=== PATIENT | female | born 1940 | race Caucasian/White ===

== ENCOUNTER 2020-07-20 13:17 | Inpatient (IN) ==
[2020-07-20 13:22] VITALS: BMI 25.0
--- NOTE | 2020-07-20 14:19 | DR.GENAD ---
HPI <Haroon Avalos - Last Filed: 07/22/20 08:22> Time Seen Time Seen by Provider: 07/20/20 14:01 PCP Primary Care Physician: EFRAIN ALMARAZ Complaint/Symptoms Chief Complaint:: PT. TESTED POSITIVE FOR INFLUENZA AND COVID ON 07/15/20. PT. STILL C/O COUGH, DECREASED APPETITE, FEVER AND BODY ACHES. PT. IS CURRENTLY TAKING TESSALON PEARLES WHICH IS NOT WORKING FOR THE COUGH. COVID-19 Coronavirus risk:travel/contact w/high risk person: Yes Has patient experienced Coronavirus symptoms: Yes Coronavirus symptoms experienced: Fever and Coughing Source History Provided: Patient and Family Member Mode of Arrival Mode of Arrival: Ambulatory Timing Onset of Chief Complaint: 07/15/20 PMH <Haroon Avalos - Last Filed: 07/22/20 08:22> PMH Past Medical History: No Past Surgical History: Yes Surgical History: Family History History of Family Medical Conditions: Yes Family Medical History: Hypertension Social History Does patient currently use any type of tobacco product: No Have you used tobacco products in the last 12 months: No Type of Tobacco Use: None Does any household member use tobacco: No Alcohol Use: None Do you use any recreational Drugs:: No Lives With: Alone Lives Where: Home Travel Risk Coronavirus risk:travel/contact w/high risk person: Yes Has patient experienced Coronavirus symptoms: Yes Coronavirus symptoms experienced: Fever and Coughing Infectious screening In the last 2 months have you had wt loss of >10#?: NO Have you had fever, night sweats or hemotysis?: No Have you traveled outside the country in the last 6 months?: No Isolation: Droplet ROS <Haroon Avalos - Last Filed: 07/22/20 08:22> Review of Systems Constitutional: Chills, Fever, Malaise, Weakness and Fatigue Eyes: No Symptoms Reported ENTM: No Symptoms Reported Respiratoy: Non-Productive Cough and Short of Breath Cardiovascular: No Symptoms Reported Gastrointestinal/Abdominal: No Symptoms Reported Genitourinary: No Symptoms Reported Neurological: No Symptoms Reported Musculoskeletal: Muscle Pain Integumentary: No Symptoms Reported Hematologic/Lymphatic: No Symptoms Reported Endocrine: No Symptoms Reported Psychiatric: No Symptoms Reported All Other Systems: Reviewed and Negative PE <Haroon Avalos - Last Filed: 07/22/20 08:22> Vital Signs Vitals: Temperature 99.6 F Pulse Rate 80 Respiratory Rate 17 Blood Pressure 142/62 O2 Sat by Pulse Oximetry 94 General Limitations: No Limitations General Appearance: Alert and Other (not lethargic but weak ) Head Head Exam: Normal Inspection, Atraumatic and Normocephalic Eyes Eye exam: Normal Appearance, PERRL and EOMI; negative Scleral Icterus and Conjunctival Injection ENT ENT Exam: Normal Exam, Normal Oropharynx, Normal External Ear Exam and Mucous Membranes Moist External Ear Exam: Normal External Inspection Neck Neck Exam: Normal Inspection, Full ROM and Trachea Midline; negative Lymphaden opathy Chest Chest Inspection: Normal Inspection and Symmetric Chest Wall Rise Respiratory Respiratory Exam: Normal Lung Sounds Bilat; negative Accessory Muscle Use and Chest Wall Tenderness Respiratory Exam: Bilateral: Clear to Auscultation Cardiovascular Cardiovascular Exam: Regular Rate, Normal Rhythm and Normal Heart Sounds Abdominal Exam Abdominal Exam: Normal Inspection, Normal Bowel Sounds and Soft; negative Distention, Tenderness and Guarding Extremities Extremities Exam: Normal Inspection and Full ROM; negative Tenderness, Edema and Joint Swelling Back Back Exam: Normal Inspection and Full ROM; negative Tenderness Neurologic Neurological Exam: Alert, Oriented X3 and Normal Gait Psychiatric Psychiatric Exam: Normal Affect, Normal Mood and Depressed <Aminah Shah - Last Filed: 07/21/20 01:28> Vital Signs Vitals: Temperature 99.6 F Pulse Rate 80 Respiratory Rate 17 Blood Pressure 142/62 O2 Sat by Pulse Oximetry 94 COURSE <Haroon Avalos - Last Filed: 07/22/20 08:22> Treatment Treatment: 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 at 200h <Aminah Shah - Last Filed: 07/21/20 01:28> Treatment Treatment: Dr Pina accepts pt ROR <Haroon Avalos - Last Filed: 07/22/20 08:22> Labs Reviewed Result Diagrams: 07/22/20 05:05 07/22/20 05:05 Laboratory: WBC 3.8 X10^3/uL (3.6-10.0) 07/20/20 14:25 RBC 4.68 X10^6/uL (3.5-5.4) 07/20/20 14:25 Hgb 14.2 g/dL (12.0-16.0) 07/20/20 14:25 Hct 42.0 % (36.0-47.0) 07/20/20 14:25 MCV 89.9 fL (80.0-100.0) 07/20/20 14:25 MCH 30.3 pg (27.0-34.0) 07/20/20 14:25 MCHC 33.8 g/dL (33.0-35.0) 07/20/20 14:25 RDW 12.1 % (11.6-16.5) 07/20/20 14:25 Plt Count 173 X10^3/uL (150.0-450.0) 07/20/20 14:25 MPV 8.6 fL (7.4-11.0) 07/20/20 14:25 Neut % (Auto) 63.0 % (42.0-75.0) 07/20/20 14:25 Lymph % (Auto) 25.4 % (21.0-51.0) 07/20/20 14:25 [place] % (Auto) 11.0 % (0.0-13.0) 07/20/20 14:25 Eos % (Auto) 0.0 % (0.9-2.9) L 07/20/20 14:25 Baso % (Auto) 0.6 % (0.2-1.0) 07/20/20 14:25 Neut # (Auto) 2.4 x10^3/uL (2.2-4.8) 07/20/20 14:25 Lymph # (Auto) 1.0 X10^3/uL (1.3-2.9) L 07/20/20 14:25 [place] # (Auto) 0.4 x10^3/uL (0.3-0.8) 07/20/20 14:25 Eos # (Auto) 0.0 x10^3/uL (0.0-0.2) 07/20/20 14:25 Baso # (Auto) 0.0 X10^3/uL (0.0-0.1) 07/20/20 14:25 Absolute Nucleated RBC 0.2 /100WBC 07/20/20 14:25 PT 13.2 SECONDS (11.8-14.3) 07/20/20 14:25 INR Target Range - 07/20/20 14:25 INR 1.03 (0.8-1.3) 07/20/20 14:25 APTT 31.0 SECONDS (22.9-36.5) 07/20/20 14:25 PTT Comment - 07/20/20 14:25 D-Dimer 2.07 ug/ml (0.0-0.57) H* 07/20/20 14:25 Sample Site Rr 07/20/20 14:49 ABG pH 7.490 (7.35-7.45) H 07/20/20 14:49 ABG pCO2 35.0 mmHg (35.0-45.0) 07/20/20 14:49 ABG pO2 70.0 mmHg (80.0-100.0) L 07/20/20 14:49 ABG HCO3 26.7 mmol/L (22-26) H 07/20/20 14:49 ABG O2 Saturation 95.0 % (90-100) 07/20/20 14:49 ABG Base Excess 3.5 mmol/L (-2.0-2.0) H 07/20/20 14:49 Herbert Test Pos 07/20/20 14:49 A-a Gradient 36.0 mmHg 07/20/20 14:49 FiO2 21.0 07/20/20 14:49 Blood Gas Comments Humble well cb 07/20/20 14:49 Sodium 139 mmol/L (136-145) 07/20/20 14:25 Corrected Sodium TNP 07/20/20 14:25 Potassium 4.2 mmol/L (3.5-5.1) 07/20/20 14:25 Chloride 102 mmol/L (98-107) 07/20/20 14:25 Carbon Dioxide 29.9 mmol/L (21-32) 07/20/20 14:25 BUN 13 mg/dL (7-18) 07/20/20 14:25 Creatinine 1.02 mg/dL (0.55-1.02) 07/20/20 14:25 Est GFR (MDRD) Af Amer > 60 (>60) 07/20/20 14:25 Est GFR (MDRD) Non-Af 56 (>60) L 07/20/20 14:25 Glucose 103 mg/dL (65-99) H 07/20/20 14:25 Calcium 9.1 mg/dL (8.5-10.1) 07/20/20 14:25 Corrected Calcium 9.8 mg/dL (8.5-10.1) 07/20/20 14:25 Magnesium 2.0 mg/dL (1.7-2.9) 07/20/20 14:25 Ferritin 411 ng/mL (8-252) H 07/20/20 14:25 Total Bilirubin 0.30 mg/dL (0.2-1.0) 07/20/20 14:25 AST 32 Units/L (15-37) 07/20/20 14:25 ALT 29 Units/L (12-78) 07/20/20 14:25 Alkaline Phosphatase 72 Units/L (46-116) 07/20/20 14:25 Creatine Kinase 137 Units/L (26-192) 07/20/20 14:25 CK-MB (CK-2) 1.3 ng/mL (0-4.0) 07/20/20 14:25 CK/CKMB % Calc 1.0 % (<4) 07/20/20 14:25 Troponin I < 0.02 ng/mL (0-1.5) 07/20/20 14:25 C-Reactive Protein 31.10 mg/L (0-3.0) H 07/20/20 14:25 B-Natriuretic Peptide 22.2 pg/mL (0-79) 07/20/20 14:25 Total Protein 7.4 g/dL (6.4-8.2) 07/20/20 14:25 Albumin 3.1 g/dL (3.4-5.0) L 07/20/20 14:25 Globulin 4.3 g/dL (2.5-4.5) 07/20/20 14:25 Albumin/Globulin Ratio 0.7 Ratio (1.1-2.1) L 07/20/20 14:25 <Aminah Shah - Last Filed: 07/21/20 01:28> Labs Reviewed Laboratory Results Reviewed?: Yes Laboratory: WBC 3.8 X10^3/uL (3.6-10.0) 07/20/20 14:25 RBC 4.68 X10^6/uL (3.5-5.4) 07/20/20 14:25 Hgb 14.2 g/dL (12.0-16.0) 07/20/20 14:25 Hct 42.0 % (36.0-47.0) 07/20/20 14:25 MCV 89.9 fL (80.0-100.0) 07/20/20 14:25 MCH 30.3 pg (27.0-34.0) 07/20/20 14:25 MCHC 33.8 g/dL (33.0-35.0) 07/20/20 14:25 RDW 12.1 % (11.6-16.5) 07/20/20 14:25 Plt Count 173 X10^3/uL (150.0-450.0) 07/20/20 14:25 MPV 8.6 fL (7.4-11.0) 07/20/20 14:25 Neut % (Auto) 63.0 % (42.0-75.0) 07/20/20 14:25 Lymph % (Auto) 25.4 % (21.0-51.0) 07/20/20 14:25 [place] % (Auto) 11.0 % (0.0-13.0) 07/20/20 14:25 Eos % (Auto) 0.0 % (0.9-2.9) L 07/20/20 14:25 Baso % (Auto) 0.6 % (0.2-1.0) 07/20/20 14:25 Neut # (Auto) 2.4 x10^3/uL (2.2-4.8) 07/20/20 14:25 Lymph # (Auto) 1.0 X10^3/uL (1.3-2.9) L 07/20/20 14:25 [place] # (Auto) 0.4 x10^3/uL (0.3-0.8) 07/20/20 14:25 Eos # (Auto) 0.0 x10^3/uL (0.0-0.2) 07/20/20 14:25 Baso # (Auto) 0.0 X10^3/uL (0.0-0.1) 07/20/20 14:25 Absolute Nucleated RBC 0.2 /100WBC 07/20/20 14:25 PT 13.2 SECONDS (11.8-14.3) 07/20/20 14:25 INR Target Range - 07/20/20 14:25 INR 1.03 (0.8-1.3) 07/20/20 14:25 APTT 31.0 SECONDS (22.9-36.5) 07/20/20 14:25 PTT Comment - 07/20/20 14:25 D-Dimer 2.07 ug/ml (0.0-0.57) H* 07/20/20 14:25 Sample Site Rr 07/20/20 14:49 ABG pH 7.490 (7.35-7.45) H 07/20/20 14:49 ABG pCO2 35.0 mmHg (35.0-45.0) 07/20/20 14:49 ABG pO2 70.0 mmHg (80.0-100.0) L 07/20/20 14:49 ABG HCO3 26.7 mmol/L (22-26) H 07/20/20 14:49 ABG O2 Saturation 95.0 % (90-100) 07/20/20 14:49 ABG Base Excess 3.5 mmol/L (-2.0-2.0) H 07/20/20 14:49 Herbert Test Pos 07/20/20 14:49 A-a Gradient 36.0 mmHg 07/20/20 14:49 FiO2 21.0 07/20/20 14:49 Blood Gas Comments Humble well cb 07/20/20 14:49 Sodium 139 mmol/L (136-145) 07/20/20 14:25 Corrected Sodium TNP 07/20/20 14:25 Potassium 4.2 mmol/L (3.5-5.1) 07/20/20 14:25 Chloride 102 mmol/L (98-107) 07/20/20 14:25 Carbon Dioxide 29.9 mmol/L (21-32) 07/20/20 14:25 BUN 13 mg/dL (7-18) 07/20/20 14:25 Creatinine 1.02 mg/dL (0.55-1.02) 07/20/20 14:25 Est GFR (MDRD) Af Amer > 60 (>60) 07/20/20 14:25 Est GFR (MDRD) Non-Af 56 (>60) L 07/20/20 14:25 Glucose 103 mg/dL (65-99) H 07/20/20 14:25 Calcium 9.1 mg/dL (8.5-10.1) 07/20/20 14:25 Corrected Calcium 9.8 mg/dL (8.5-10.1) 07/20/20 14:25 Magnesium 2.0 mg/dL (1.7-2.9) 07/20/20 14:25 Ferritin 411 ng/mL (8-252) H 07/20/20 14:25 Total Bilirubin 0.30 mg/dL (0.2-1.0) 07/20/20 14:25 AST 32 Units/L (15-37) 07/20/20 14:25 ALT 29 Units/L (12-78) 07/20/20 14:25 Alkaline Phosphatase 72 Units/L (46-116) 07/20/20 14:25 Creatine Kinase 137 Units/L (26-192) 07/20/20 14:25 CK-MB (CK-2) 1.3 ng/mL (0-4.0) 07/20/20 14:25 CK/CKMB % Calc 1.0 % (<4) 07/20/20 14:25 Troponin I < 0.02 ng/mL (0-1.5) 07/20/20 14:25 C-Reactive Protein 31.10 mg/L (0-3.0) H 07/20/20 14:25 B-Natriuretic Peptide 22.2 pg/mL (0-79) 07/20/20 14:25 Total Protein 7.4 g/dL (6.4-8.2) 07/20/20 14:25 Albumin 3.1 g/dL (3.4-5.0) L 07/20/20 14:25 Globulin 4.3 g/dL (2.5-4.5) 07/20/20 14:25 Albumin/Globulin Ratio 0.7 Ratio (1.1-2.1) L 07/20/20 14:25 XRAY XRAY Interpreted by: Radiologist X-ray Results: CT Chest: 1. No pulmonary emboli 2. Bronchopneumonia suspicious for COVID-19 Opioid <Haroon Avalos - Last Filed: 07/22/20 08:22> Opioid Risk Tool Age (Ludwig box if 16-45): No History of Preadolescent Sexual Abuse: No Total: 0 Total Score Risk Category: Low Risk Copyright: Mayank HAYNES predicting aberrant behaviors <Aminah Shah - Last Filed: 07/21/20 01:28> Opioid Risk Tool Total: 0 Total Score Risk Category: Low Risk <Haroon Avalos - Last Filed: 07/22/20 08:22> Diagnosis Discharge Problem: Bronchopneumonia, COVID-19, Influenza, Hypoxia
--- NOTE | 2020-07-20 14:30 | RAD ---
HISTORYCough, COVID-19STUDYChest AP portableCOMPARISONNoneFINDINGSThe heart is within normal limits in size. The wendy are normal. The lungs are free of acute infiltrates. No pleural effusions are identified. Bony thorax is unremarkable.IMPRESSIONNo significant abnormality identifiedElectronically signed by: JEROD GIORDANO (Jul 20, 2020 14:28:47)
[2020-07-20 14:37] LABS: BASOPHILS % (AUTO) 0.6 % (0.2-1.0); HEMOGLOBIN 14.2 g/dL (12.0-16.0); LYMPHOCYTES % (AUTO) 25.4 % (21.0-51.0); MEAN CORPUSCULAR HEMOGLOBIN 30.3 pg (27.0-34.0); MEAN CORPUSCULAR HGB CONC 33.8 g/dL (33.0-35.0); MEAN CORPUSCULAR VOLUME 89.9 fL (80.0-100.0); MEAN PLATELET VOLUME 8.6 fL (7.4-11.0); MONOCYTES # (AUTO) 0.4 x10^3/uL (0.3-0.8); NEUTROPHILS # (AUTO) 2.4 x10^3/uL (2.2-4.8); PLATELET COUNT 173 X10^3/uL (150.0-450.0); RED BLOOD COUNT 4.68 X10^6/uL (3.5-5.4); RED CELL DISTRIBUTION WIDTH 12.1 % (11.6-16.5); WHITE BLOOD COUNT 3.8 X10^3/uL (3.6-10.0)
[2020-07-20 14:53] LABS: BLOOD UREA NITROGEN 13 mg/dL (7-18); CALCIUM 9.1 mg/dL (8.5-10.1); CARBON DIOXIDE 29.9 mmol/L (21-32); CHLORIDE 102 mmol/L (98-107); CREATININE 1.02 mg/dL (0.55-1.02); SODIUM 139 mmol/L (136-145); TROPONIN I < 0.02 ng/mL (0-1.5); eGFR NON BLACK RACES 56 (>60)
[2020-07-20 14:54] LABS: ABG ALLEN TEST POS; ABG BASE EXCESS 3.5 mmol/L (-2.0-2.0); ABG HCO3 26.7 mmol/L (22-26)
[2020-07-20 14:57] LABS: ALANINE AMINOTRANSFERASE 29 Units/L (12-78); ALBUMIN 3.1 g/dL (3.4-5.0); ALKALINE PHOSPHATASE 72 Units/L (46-116); ASPARTATE AMINO TRANSFERASE 32 Units/L (15-37); COR CA(FOR HYPOALB) 9.8 mg/dL (8.5-10.1); CREATINE KINASE 137 Units/L (26-192); CREATINE KINASE MB 1.3 ng/mL (0-4.0); TOTAL PROTEIN 7.4 g/dL (6.4-8.2)
--- NOTE | 2020-07-20 16:01 | CT ---
HISTORYSOB positive influenza test and COVID-19 test on 07/15/2020. Coughing. Decreased appetite with fever and body aches.STUDYCTA CHESTCOMPARISONChest radiograph from earlier todayTECHNIQUEMultiple CT axial images of the chest were obtained with IV contrast. Coronal and sagittal images were reconstructed. 3D reconstructions using axial MIPS imaging was performed and reviewed. Dose reduction techniques included Automated Exposure Control (AEC) and adjustment of mA and kV.Stenoses are measured using NASCET criteria.FINDINGSPulmonary arteries are identified to subsegmental branches. There are no pulmonary emboli.Patchy bilateral areas of ground-glass opacity are present compatible with bronchopneumonia. This appearance is suspicious for COVID-19. No pleural effusion or lung cavitation.The thyroid has a normal size and configuration. No axillary mass or significant axillary lymphadenopathy is identified. The heart is normal in size. Atherosclerotic calcifications are present in the coronary arteries. No mediastinal mass or significant lymphadenopathy.Limited views of the upper abdomen show no significant abnormality. No significant bone abnormality. Small hiatal hernia.IMPRESSION1. No pulmonary emboli2. Bronchopneumonia suspicious for COVID-19Electronically signed by: Alessio Shah (Jul 20, 2020 15:59:56)
[2020-07-20] MEDS ORDERED: SOLU-Medrol 125 MG VIAL IVP ONE (16:53)
[2020-07-20] MEDS ORDERED: ROCEPHIN 1 GRAM IV PREMIX 1 G/50 ML IV.SOLN. IV ONE (16:53)
[2020-07-20] MEDS ORDERED: VENTOLIN or PROAIR HFA IN ONE (16:53)
[2020-07-20] MEDS ORDERED: ZITHROMAX INJ 500 MG VIAL 500 MG in NS 250 ML IV 250 ML IV SCH (16:54)
[2020-07-20] MEDS ORDERED: DECADRON INJ PRESERVATIVE-FREE IVP ONE (17:25)
[2020-07-20] MEDS ORDERED: NS 50 ML IV + SPIKE MINIBAG* 50 ML IV ONE (17:35)
[2020-07-20] MEDS ORDERED: DECADRON INJ ONE (17:35)
[2020-07-20] MEDS ORDERED: NS 250 ML IV 250 ML IV ONE (17:35)
[2020-07-20] MEDS ORDERED: ZITHROMAX INJ 500 MG VIAL IV ONE (17:35)
[2020-07-20] MEDS ORDERED: NS 1000 ML 1,000 ML ONE (17:35)
[2020-07-20] MEDS ORDERED: ROCEPHIN VIAL 1 GRAM ONE (17:36)
[2020-07-20] MEDS ORDERED: NS 1000 ML 1,000 ML IV SCH (18:00)
[2020-07-20] MEDS ORDERED: PLAQUENIL PO SCH (21:00)
[2020-07-20] MEDS ORDERED: REMDESIVIR 200 MG in NS 250 ML IV 250 ML IV SCH (23:00)
[2020-07-20] MEDS: ASCORBIC ACID INJ MULTI-DOSE VIAL 1,500 MG in NS 100 ML IV 100 ML IV SCH (23:31)
[2020-07-20] MEDS: LOVENOX INJ 30 MG SYR SC SCH (23:31)
[2020-07-20] MEDS: ZINC SULFATE PO SCH (23:32)
[2020-07-20] MEDS: NS 1000 ML 1,000 ML IV SCH (23:32)
[2020-07-21] MEDS: ASCORBIC ACID INJ MULTI-DOSE VIAL 1,500 MG in NS 100 ML IV 100 ML IV SCH ×2 (04:00→08:18)
[2020-07-21 05:41] LABS: BASOPHILS % (AUTO) 0.2 % (0.2-1.0); HEMATOCRIT 36.6 % (36.0-47.0); HEMOGLOBIN 12.6 g/dL (12.0-16.0); LYMPHOCYTES # (AUTO) 0.5 X10^3/uL (1.3-2.9); LYMPHOCYTES % (AUTO) 33.8 % (21.0-51.0); MEAN CORPUSCULAR HEMOGLOBIN 30.6 pg (27.0-34.0); MEAN CORPUSCULAR HGB CONC 34.3 g/dL (33.0-35.0); MEAN CORPUSCULAR VOLUME 89.1 fL (80.0-100.0); MEAN PLATELET VOLUME 9.3 fL (7.4-11.0); MONOCYTES # (AUTO) 0.1 x10^3/uL (0.3-0.8); MONOCYTES % (AUTO) 6.2 % (0.0-13.0); NEUTROPHILS # (AUTO) 0.9 x10^3/uL (2.2-4.8); NEUTROPHILS % (AUTO) 59.8 % (42.0-75.0); PLATELET COUNT 162 X10^3/uL (150.0-450.0); RED BLOOD COUNT 4.11 X10^6/uL (3.5-5.4); RED CELL DISTRIBUTION WIDTH 12.1 % (11.6-16.5)
[2020-07-21 05:59] LABS: ALANINE AMINOTRANSFERASE 24 Units/L (12-78); ALBUMIN 2.5 g/dL (3.4-5.0); ALKALINE PHOSPHATASE 57 Units/L (46-116); ASPARTATE AMINO TRANSFERASE 26 Units/L (15-37); BLOOD UREA NITROGEN 14 mg/dL (7-18); CALCIUM 8.4 mg/dL (8.5-10.1); CARBON DIOXIDE 26.3 mmol/L (21-32); CHLORIDE 106 mmol/L (98-107); COR CA(FOR HYPOALB) 9.6 mg/dL (8.5-10.1); COR NA(FOR HYPERGLY) 142 mmol/L (136-145); CREATININE 0.84 mg/dL (0.55-1.02); SODIUM 141 mmol/L (136-145); TOTAL PROTEIN 6.4 g/dL (6.4-8.2); eGFR NON BLACK RACES > 60 (>60)
[2020-07-21 06:00] LABS: ABG ALLEN TEST POS; ABG BASE EXCESS 2.4 mmol/L (-2.0-2.0); ABG HCO3 26.4 mmol/L (22-26)
[2020-07-21 06:04] LABS: PLATELET MORPHOLOGY COMMENT NORMAL (NORMAL); WHITE BLOOD COUNT 1.5 X10^3/uL (3.6-10.0)
--- NOTE | 2020-07-21 07:05 | RAD ---
HISTORYSOB, [id number], 1 [id number]/08/2020 theFINDINGSThe trachea is midline. The cardiac silhouette is unremarkable. Patchy infiltrates now present within the left perihilar and left lower lobe. No pleural effusion or pneumothorax.. The bony thorax is unremarkable.IMPRESSIONPatchy left lung infiltrates new from previous 07/20/2020Electronically signed by: Rosales Benavides (Jul 21, 2020 07:03:33)
[2020-07-21] MEDS: LOVENOX INJ 30 MG SYR SC SCH ×2 (08:18→20:49)
[2020-07-21] MEDS: TRICOR TAB 160 MG PO SCH (08:19)
[2020-07-21] MEDS: ZINC SULFATE PO SCH ×2 (08:20→20:50)
[2020-07-21] MEDS: PULMICORT NEB TX 0.5 MG NEB SCH ×2 (08:59→20:59)
[2020-07-21] MEDS: DUONEB 0.5 MG/3 MG (3 mL) NEB SCH ×4 (08:59→20:59)
[2020-07-21] MEDS ORDERED: VITAMIN A PO SCH (09:00)
[2020-07-21] MEDS ORDERED: SOLU-Medrol 125 MG VIAL IVP SCH (09:00)
[2020-07-21] MEDS ORDERED: VITAMIN D (1.25MG) PO SCH (09:00)
[2020-07-21] MEDS: REMDESIVIR 100 MG in NS 250 ML IV 250 ML IV SCH (10:48)
[2020-07-21] MEDS: SOLU-Medrol 40 MG VIAL IVP SCH ×3 (10:48→21:57)
[2020-07-21] MEDS ORDERED: LEVAQUIN PREMIX IV 500 MG 500 MG/100 ML BAG IV SCH (16:00)
[2020-07-21] MEDS: TESSALON PERLES PO SCH ×2 (17:10→21:57)
--- NOTE | 2020-07-21 19:28 | DR.H&P ---
H&P - History & Physical for Day of: H&P Date: 07/20/20 - Chief Complaint Chief Complaint: COUGH, SOB, WEAKNESS, FEVER, BODY ACHES, DECREASED APPETITE - History of Present Illness History of Present Illness: IS A 79 YEAR OLD PATIENT OF . SHE PRESENTED TO THE ER WITH COMPLAINTS OF SEVERE WEAKNESS, SHORTNESS OF BREATH, COUGH, DECREASED APPETITE, FEVER, AND BODY ACHES. SHE HAD A POSITIVE COVID-19 TEST ON 07/15/20. SHE WAS STARTED ON TESSALON PERLES TID PRN, A Z-PACK, TAMIFLU 75MG PO BID, AND AN ALBUTEROL INHALER. SHE REPORTS WORSENING OF SYMPTOMS DESPITE COMPLIANCE WITH HER MEDICATIONS. ARRIVAL TO THE ER, VITALS WERE 9 8.8-86-17-94%RA-125/94. LABS WERE OBTAINED. ABNORMAL LAB VALUES INCLUDE THE FOLLOWING: FERRITIN 411, CRP 31.10, GLUCOSE 103, ALBUMIN 3.1, D-DIMER 2.07. COVID-19 POSITIVE. ABG REVEALED: PH 7.490, PC02 35.0, P02 70.0, HC03 26.7, 02 SAT 95.0, BASE EXCESS 3.5, FI02 21.0. A CHEST XRAY WAS OBTAINED AND REVEALED: No significant abnormality identified. A CHEST CTA WAS THEN OBTAINED AND REVEALED: 1. No pulmonary emboli. 2. Bronchopneumonia suspicious for COVID-19. EKG REVEALED: SINUS RHYTHM WITH HR 76. SHE WAS GIVEN ROCEPHIN 1G IV X 1, SOLU-MEDROL 125MG IV X 1, PROAIR 2 PUFFS X 1, ZITHROMAX 500MG IV X 1, DECADRON 8MG IV X 1, AND REMDESIVIR 250MG IV X 1 DOSE. SHE WAS ADMITTED FOR FURTHER EVALUATION AND TREATMENT OF BRONCHOPNEUMONIA DUE TO COVID-19. SHE WAS STARTED ON NS AT KVO, REMDESIVIR 100MG IV X 1, LEVAQUIN 500MG IV DAILY, DUONEBS QID, PULMICORT NEBS BID, TESSALON PERLES 200MG PO TID, TUSSIONEX 5ML PO Q12H, LOVENOX 30MG SC BID, TRICOR 160MG PO DAILY, AND ZINC 220MG PO BID. OTHERWISE, WE PLAN TO FOLLOW UP WITH AM LABS, CHEST XRAY, ABG, AND CONTINUE TO MONITOR. TIME SPENT ON CLINICAL ASSESSMENT, REVIEWING LABS AND IMAGING, DECISION MAKING, AND DOCUMENTATION GREATER THAN 75 MINUTES. - Past Medical History Past Medical History: Dementia - Past Surgical History Surgical History: - Family History Family Medical History: Hypertension - Social History Does patient currently use any type of tobacco product: No Have you used tobacco products in the last 12 months: No Type of Tobacco Use: None Does any household member use tobacco: No Alcohol Use: None Drug Use: None - Medications Home Medications: No Known Drug Allergies Allergy (Verified 07/20/20 13:23) CONTINUE taking the following medications albuterol sulfate 1 puff INHALATION Q6H PRN 07/20/20 [History] azithromycin 250 mg PO DAILY 07/20/20 [History] benzonatate 100 mg PO Q6H PRN 07/20/20 [History] donepezil 5 mg PO HS 07/20/20 [History] oseltamivir 75 mg PO BID 07/20/20 [History] - Review of Systems Constitutional: Fever, Weakness, Malaise Eyes: No Symptoms Reported ENT: No Symptoms Reported Respiratory: No Symptoms Reported Cardiovascular: No Symptoms Reported Gastrointestinal: No Symptoms Reported Genitourinary: No Symptoms Reported Musculoskeletal: No Symptoms Reported Skin: No Symptoms Reported Neurological: Weakness - Physical Exam Vital Signs: Temperature 98.6 F Pulse Rate 96 Respiratory Rate 28 Blood Pressure 129/58 O2 Sat by Pulse Oximetry 98 Oriented: Normal Eyes: Normal Ear: Normal Nose: Normal Throat: Normal Respiratory: Diminished Throughout Cardiovascular: Normal : Normal Auscultation: Bowel Sounds: Normal Palpation: Normal Tenderness: Normal Skin: Normal Musculoskeletal: Normal Psychiatric: Normal Mood Description: Calm Affect: Normal Speech Pattern: Clear - Assessment/Plan (1) Bronchopneumonia Status: Acute Plan: NS AT KVO, REMDESIVIR 100MG IV X 1, LEVAQUIN 500MG IV DAILY, DUONEBS QID, PULMICORT NEBS BID, TESSALON PERLES 200MG PO TID, TUSSIONEX 5ML PO Q12H, LOVENOX 30MG SC BID, TRICOR 160MG PO DAILY, AND ZINC 220MG PO BID (2) COVID-19 Status: Acute (3) Hypoxia Status: Acute - Allergies Allergies/Adverse Reactions: Allergies Allergy/AdvReac Type Severity Reaction Status Date / Time No Known Drug Allergies Allergy Verified 07/20/20 13:23
[2020-07-21] MEDS: TUSSIONEX PENNKINETIC SUSP PO PRN (20:50)
[2020-07-21] MEDS: COLACE CAP 100 MG PO PRN (20:51)
[2020-07-21] MEDS: NS 1000 ML 1,000 ML IV SCH (21:57)
[2020-07-21] MEDS ORDERED: LANOXIN INJ ONE ×2 (22:44→23:47)
[2020-07-21] MEDS ORDERED: LANOXIN INJ IVP ONE ×2 (22:46→23:57)
[2020-07-21 23:02] LABS: CKMB % 1.5 % (<4); CREATINE KINASE 136 Units/L (26-192); TROPONIN I < 0.02 ng/mL (0-1.5)
[2020-07-22] MEDS ORDERED: LANOXIN INJ ONE (01:23)
[2020-07-22] MEDS ORDERED: LANOXIN INJ IVP ONE (01:26)
[2020-07-22 04:48] LABS: ABG ALLEN TEST POS; ABG BASE EXCESS 1.8 mmol/L (-2.0-2.0); ABG HCO3 25.7 mmol/L (22-26)
[2020-07-22] MEDS: TESSALON PERLES PO SCH ×3 (05:51→22:09)
[2020-07-22] MEDS: SOLU-Medrol 40 MG VIAL IVP SCH ×3 (05:51→22:09)
[2020-07-22 05:52] LABS: ALANINE AMINOTRANSFERASE 21 Units/L (12-78); ALBUMIN 2.1 g/dL (3.4-5.0); ALKALINE PHOSPHATASE 51 Units/L (46-116); ASPARTATE AMINO TRANSFERASE 20 Units/L (15-37); BLOOD UREA NITROGEN 23 mg/dL (7-18); CALCIUM 8.7 mg/dL (8.5-10.1); CARBON DIOXIDE 27.1 mmol/L (21-32); CHLORIDE 109 mmol/L (98-107); COR CA(FOR HYPOALB) 10.2 mg/dL (8.5-10.1); COR NA(FOR HYPERGLY) 145 mmol/L (136-145); CREATININE 1.11 mg/dL (0.55-1.02); SODIUM 143 mmol/L (136-145); TOTAL PROTEIN 5.5 g/dL (6.4-8.2); eGFR NON BLACK RACES 50 (>60)
--- NOTE | 2020-07-22 06:15 | RAD ---
HISTORYFollow-up COVID-19STUDYChest AP [id number]/2020FINDINGSThe heart is within normal limits in size. The wendy are normal. The right lung is clear. Perihilar left upper and left lower lobe infiltrates are unchanged. No definite pleural effusions are identified. Bony thorax is unremarkable.IMPRESSIONNo change left perihilar upper and lower lobe infiltratesElectronically signed by: JEROD GIORDANO (Jul 22, 2020 06:13:42)
[2020-07-22 06:19] LABS: BASOPHILS % (AUTO) 0.1 % (0.2-1.0); HEMATOCRIT 34.5 % (36.0-47.0); HEMOGLOBIN 11.8 g/dL (12.0-16.0); LYMPHOCYTES # (AUTO) 0.5 X10^3/uL (1.3-2.9); LYMPHOCYTES % (AUTO) 5.1 % (21.0-51.0); MEAN CORPUSCULAR HEMOGLOBIN 30.6 pg (27.0-34.0); MEAN CORPUSCULAR HGB CONC 34.2 g/dL (33.0-35.0); MEAN CORPUSCULAR VOLUME 89.6 fL (80.0-100.0); MEAN PLATELET VOLUME 9.6 fL (7.4-11.0); MONOCYTES # (AUTO) 0.5 x10^3/uL (0.3-0.8); MONOCYTES % (AUTO) 4.6 % (0.0-13.0); NEUTROPHILS # (AUTO) 9.2 x10^3/uL (2.2-4.8); NEUTROPHILS % (AUTO) 90.2 % (42.0-75.0); PLATELET COUNT 194 X10^3/uL (150.0-450.0); RED BLOOD COUNT 3.85 X10^6/uL (3.5-5.4); WHITE BLOOD COUNT 10.2 X10^3/uL (3.6-10.0)
[2020-07-22 06:47] LABS: CKMB % 1.3 % (<4); CREATINE KINASE 143 Units/L (26-192); CREATINE KINASE MB 1.9 ng/mL (0-4.0); TROPONIN I < 0.02 ng/mL (0-1.5)
[2020-07-22 07:34] LABS: BAND NEUTROPHILS % 5 % (0-10); PLATELET MORPHOLOGY COMMENT NORMAL (NORMAL)
[2020-07-22] MEDS: ZINC SULFATE PO SCH ×2 (08:40→21:00)
[2020-07-22] MEDS: VITAMIN D3 125 mcg (5,000 UNITS) PO SCH (08:40)
[2020-07-22] MEDS: LOVENOX INJ 30 MG SYR SC SCH ×2 (08:40→22:06)
[2020-07-22] MEDS: TRICOR TAB 160 MG PO SCH (08:40)
[2020-07-22] MEDS: LEVAQUIN PREMIX IV 250 MG 250 MG/50 ML BAG IV SCH (08:41)
[2020-07-22] MEDS ORDERED: VITAMIN A PO SCH (09:00)
[2020-07-22] MEDS: DUONEB 0.5 MG/3 MG (3 mL) NEB SCH ×4 (09:15→20:56)
[2020-07-22] MEDS: PULMICORT NEB TX 0.5 MG NEB SCH ×2 (09:15→20:56)
[2020-07-22] MEDS: REMDESIVIR 100 MG in NS 250 ML IV 250 ML IV SCH (09:35)
[2020-07-22] MEDS: COLACE CAP 100 MG PO PRN (16:44)
[2020-07-22] MEDS: ARICEPT TAB 5 MG PO SCH (21:00)
--- NOTE | 2020-07-22 21:41 | PCM.PROG ---
Progress Note - Progress Note for Day of Date of Exam: 07/22/20 - Subjective Subjective: IS BEING TREATED FOR BRONCHOPNEUMONIA DUE TO COVID-19 AND HYPOXIA. TODAY, SHE IS ALERT AND ORIENTED, LYING IN BED ON MORNING ROUNDS. SHE CONTINUES WITH COMPLAINTS OF SHORTNESS OF BREATH, COUGH, BODY ACHES, AND WEAKNESS. SHE DENIES SIGNIFICANT IMPROVEMENT IN SYMPTOMS SINCE ADMISSION. SHE IS CURRENTLY UTILIZING OXYGEN VIA NASAL CANNULA AT 2 LITERS/MINUTE. ON EXAMINATION, HEART IS REGULAR IN RATE AND RHYTHM. BILATERAL LUNGS ARE NOTED WITH DIMINISHED LUNG SOUNDS THROUGHOUT. ABDOMEN IS ROUND, SOFT, AND NON-TENDER WITH NORMAL BOWEL SOUNDS NOTED IN ALL QUADRANTS. HER VITALS THIS MORNING ARE: 97.8-83-26-95%NC-125/58. LABS WERE OBTAINED. ABNORMAL LAB VALUES INCLUDE THE FOLLOWING: WBC 10.2, HGB 11.8, HCT 34.5, CHLORIDE 109, BUN 23, CREATININE 1.11, GLUCOSE 200, FERRITIN 349, TOTAL BILI 0.10, CRP 18.60, TOTAL PROTEIN 5.5, ALBUMIN 2.1. CHEST XRAY REVEALED: No change left perihilar upper and lower lobe infiltrates. SHE IS CURRENTLY RECEIVING NS AT KVO, REMDESIVIR 100MG IV DAILY, LE VAQUIN 500MG IV DAILY, DUONEBS QID, PULMICORT NEBS BID, TESSALON PERLES 200MG PO TID, TUSSIONEX 5ML PO Q12H, LOVENOX 30MG SC BID, TRICOR 160MG PO DAILY, AND ZINC 220MG PO BID. WE WILL CONTINUE WITH CURRENT PLAN OF CARE TODAY. OTHERWISE, WE PLAN TO FOLLOW UP WITH AM LABS, CHEST XRAY, AND CONTINUE TO MONITOR. - Past Medical Family Social History Past Med/Fam/Surg Hx: No changes since H&P Allergies: Allergies No Known Drug Allergies Allergy (Verified 07/20/20 13:23) - Review of Systems ROS: No change since H&P - Vital Signs and I&O's Vital Signs: Temperature 97.7 F Pulse Rate 104 Respiratory Rate 21 Blood Pressure 145/66 O2 Sat by Pulse Oximetry 96 Intake and Output: Intake & Output 07/20/20 07/21/20 07/22/20 07/23/20 11:59 11:59 11:59 11:59 Intake Total 1026 / 1026 2372 / 2372 1190 / 1190 Output Total 225 / 225 250 / 250 Balance 801 / 801 2122 / 2122 1190 / 1190 - Physical Exam Oriented: Normal Eyes: Normal Ear: Normal Nose: Normal Throat: Normal Cardiovascular: Normal : Normal Auscultation: Bowel Sounds: Normal Palpation: Normal Tenderness: Normal Skin: Normal Musculoskeletal: Normal Psychiatric: Normal Mood Description: Calm Affect: Normal Speech Pattern: Appropriate - Laboratory and Diagnostics Result Diagrams: 07/22/20 05:05 07/22/20 05:05 Labs: Laboratory WBC 10.2 X10^3/uL (3.6-10.0) H D 07/22/20 05:05 RBC 3.85 X10^6/uL (3.5-5.4) 07/22/20 05:05 Hgb 11.8 g/dL (12.0-16.0) L 07/22/20 05:05 Hct 34.5 % (36.0-47.0) L 07/22/20 05:05 MCV 89.6 fL (80.0-100.0) 07/22/20 05:05 MCH 30.6 pg (27.0-34.0) 07/22/20 05:05 MCHC 34.2 g/dL (33.0-35.0) 07/22/20 05:05 RDW 12.0 % (11.6-16.5) 07/22/20 05:05 Plt Count 194 X10^3/uL (150.0-450.0) 07/22/20 05:05 Plt Count Comment Adequate (ADEQUATE) 07/22/20 05:05 MPV 9.6 fL (7.4-11.0) 07/22/20 05:05 Neut % (Auto) 90.2 % (42.0-75.0) H 07/22/20 05:05 Lymph % (Auto) 5.1 % (21.0-51.0) L 07/22/20 05:05 [place] % (Auto) 4.6 % (0.0-13.0) 07/22/20 05:05 Eos % (Auto) 0.0 % (0.9-2.9) L 07/22/20 05:05 Baso % (Auto) 0.1 % (0.2-1.0) L 07/22/20 05:05 Neut # (Auto) 9.2 x10^3/uL (2.2-4.8) H 07/22/20 05:05 Lymph # (Auto) 0.5 X10^3/uL (1.3-2.9) L 07/22/20 05:05 [place] # (Auto) 0.5 x10^3/uL (0.3-0.8) 07/22/20 05:05 Eos # (Auto) 0.0 x10^3/uL (0.0-0.2) 07/22/20 05:05 Baso # (Auto) 0.0 X10^3/uL (0.0-0.1) 07/22/20 05:05 Absolute Nucleated RBC 0.0 /100WBC 07/22/20 05:05 Total Counted 100 07/22/20 05:05 Neutrophils % (Manual) 78 % (39-76) H 07/22/20 05:05 Band Neutrophils % 5 % (0-10) 07/22/20 05:05 Lymphocytes % (Manual) 10 % (13-43) L 07/22/20 05:05 Monocytes % (Manual) 7 % (4-9) 07/22/20 05:05 Plt Morphology Comment Normal (NORMAL) 07/22/20 05:05 RBC Morphology Normal (NORMAL) 07/22/20 05:05 PT 13.2 SECONDS (11.8-14.3) 07/20/20 14:25 INR Target Range - 07/20/20 14:25 INR 1.03 (0.8-1.3) 07/20/20 14:25 APTT 31.0 SECONDS (22.9-36.5) 07/20/20 14:25 PTT Comment - 07/20/20 14:25 D-Dimer 2.07 ug/ml (0.0-0.57) H* 07/20/20 14:25 Sample Site Rrad 07/22/20 04:45 ABG pH 7.450 (7.35-7.45) 07/22/20 04:45 ABG pCO2 37.0 mmHg (35.0-45.0) 07/22/20 04:45 ABG pO2 81.0 mmHg (80.0-100.0) 07/22/20 04:45 ABG HCO3 25.7 mmol/L (22-26) 07/22/20 04:45 ABG O2 Saturation 96.0 % (90-100) 07/22/20 04:45 ABG Base Excess 1.8 mmol/L (-2.0-2.0) 07/22/20 04:45 Herbert Test Pos 07/22/20 04:45 A-a Gradient 72.0 mmHg 07/22/20 04:45 FiO2 28.0 07/22/20 04:45 Blood Gas Comments Humble abg well-mtf 07/22/20 04:45 Sodium 143 mmol/L (136-145) 07/22/20 05:05 Corrected Sodium 145 mmol/L (136-145) 07/22/20 05:05 Potassium 4.1 mmol/L (3.5-5.1) 07/22/20 05:05 Chloride 109 mmol/L (98-107) H 07/22/20 05:05 Carbon Dioxide 27.1 mmol/L (21-32) 07/22/20 05:05 BUN 23 mg/dL (7-18) H 07/22/20 05:05 Creatinine 1.11 mg/dL (0.55-1.02) H 07/22/20 05:05 Est GFR (MDRD) Af Amer > 60 (>60) 07/22/20 05:05 Est GFR (MDRD) Non-Af 50 (>60) L 07/22/20 05:05 Glucose 200 mg/dL (65-99) H 07/22/20 05:05 Calcium 8.7 mg/dL (8.5-10.1) 07/22/20 05:05 Corrected Calcium 10.2 mg/dL (8.5-10.1) H 07/22/20 05:05 Magnesium 1.8 mg/dL (1.7-2.9) 07/21/20 22:29 Ferritin 349 ng/mL (8-252) H 07/22/20 05:05 Total Bilirubin 0.10 mg/dL (0.2-1.0) L 07/22/20 05:05 AST 20 Units/L (15-37) 07/22/20 05:05 ALT 21 Units/L (12-78) 07/22/20 05:05 Alkaline Phosphatase 51 Units/L (46-116) 07/22/20 05:05 Creatine Kinase 143 Units/L (26-192) 07/22/20 05:05 CK-MB (CK-2) 1.9 ng/mL (0-4.0) 07/22/20 05:05 CK/CKMB % Calc 1.3 % (<4) 07/22/20 05:05 Troponin I < 0.02 ng/mL (0-1.5) 07/22/20 05:05 C-Reactive Protein 18.60 mg/L (0-3.0) H 07/22/20 05:05 B-Natriuretic Peptide 22.2 pg/mL (0-79) 07/20/20 14:25 Total Protein 5.5 g/dL (6.4-8.2) L 07/22/20 05:05 Albumin 2.1 g/dL (3.4-5.0) L 07/22/20 05:05 Globulin 3.4 g/dL (2.5-4.5) 07/22/20 05:05 Albumin/Globulin Ratio 0.6 Ratio (1.1-2.1) L 07/22/20 05:05 Digoxin < 0.90 ng/mL (0.9-2) L 07/22/20 05:05 Influenza Type A (PCR) Negative (NEGATIVE) 07/21/20 12:30 Influenza Type B (PCR) Negative (NEGATIVE) 07/21/20 12:30 SARS CoV-2 RNA Rapid NESTOR Positive (NEGATIVE) A 07/21/20 12:30 - Plan (1) Bronchopneumonia Status: Acute Plan: NS AT KVO, REMDESIVIR 100MG IV DAILY, LEVAQUIN 500MG IV DAILY, DUONEBS QID, PULMICORT NEBS BID, TESSALON PERLES 200MG PO TID, TUSSIONEX 5ML PO Q12H, LOVENOX 30MG SC BID, TRICOR 160MG PO DAILY, AND ZINC 220MG PO BID (2) COVID-19 Status: Acute (3) Hypoxia Status: Acute
[2020-07-22] MEDS: NS 1000 ML 1,000 ML IV SCH (22:08)
[2020-07-23 05:14] LABS: BASOPHILS % (AUTO) 0.2 % (0.2-1.0); HEMATOCRIT 33.9 % (36.0-47.0); HEMOGLOBIN 11.4 g/dL (12.0-16.0); LYMPHOCYTES # (AUTO) 0.5 X10^3/uL (1.3-2.9); LYMPHOCYTES % (AUTO) 4.3 % (21.0-51.0); MEAN CORPUSCULAR HGB CONC 33.7 g/dL (33.0-35.0); MEAN CORPUSCULAR VOLUME 89.2 fL (80.0-100.0); MEAN PLATELET VOLUME 9.6 fL (7.4-11.0); MONOCYTES # (AUTO) 0.6 x10^3/uL (0.3-0.8); MONOCYTES % (AUTO) 5.3 % (0.0-13.0); NEUTROPHILS # (AUTO) 10.9 x10^3/uL (2.2-4.8); NEUTROPHILS % (AUTO) 90.2 % (42.0-75.0); PLATELET COUNT 213 X10^3/uL (150.0-450.0); RED CELL DISTRIBUTION WIDTH 12.4 % (11.6-16.5); WHITE BLOOD COUNT 12.1 X10^3/uL (3.6-10.0)
[2020-07-23] MEDS: TESSALON PERLES PO SCH ×3 (05:16→21:18)
[2020-07-23] MEDS: SOLU-Medrol 40 MG VIAL IVP SCH ×3 (05:16→21:18)
[2020-07-23] MEDS: NS 1000 ML 1,000 ML IV SCH ×2 (05:22→20:15)
[2020-07-23 05:30] LABS: ABG HCO3 25.5 mmol/L (22-26)
[2020-07-23 05:31] LABS: ABG ALLEN TEST RR
[2020-07-23 05:33] LABS: ALANINE AMINOTRANSFERASE 19 Units/L (12-78); ALKALINE PHOSPHATASE 59 Units/L (46-116); ASPARTATE AMINO TRANSFERASE 15 Units/L (15-37); BLOOD UREA NITROGEN 27 mg/dL (7-18); CALCIUM 8.7 mg/dL (8.5-10.1); CARBON DIOXIDE 25.7 mmol/L (21-32); CHLORIDE 106 mmol/L (98-107); COR CA(FOR HYPOALB) 10.3 mg/dL (8.5-10.1); COR NA(FOR HYPERGLY) 142 mmol/L (136-145); CREATININE 0.98 mg/dL (0.55-1.02); SODIUM 139 mmol/L (136-145); TOTAL PROTEIN 5.2 g/dL (6.4-8.2); eGFR NON BLACK RACES 58 (>60)
[2020-07-23 05:48] LABS: PLATELET MORPHOLOGY COMMENT NORMAL (NORMAL)
--- NOTE | 2020-07-23 06:24 | RAD ---
HISTORYSOB, COVID+STUDYCHEST, 1 VIEWCOMPARISONOne day prior.TECHNIQUEAP view of the chestFINDINGSCardiac and mediastinal contours are stable. No significant change in right infrahilar and left mid and lower lung infiltrates. Suspect small pleural effusions. No pneumothorax.IMPRESSIONNo significant change.Electronically signed by: Jethro Reilly (Jul 23, 2020 06:23:23)
[2020-07-23] MEDS: PULMICORT NEB TX 0.5 MG NEB SCH ×2 (09:25→20:20)
[2020-07-23] MEDS: DUONEB 0.5 MG/3 MG (3 mL) NEB SCH ×4 (09:25→20:20)
[2020-07-23] MEDS: LEVAQUIN PREMIX IV 250 MG 250 MG/50 ML BAG IV SCH (10:05)
[2020-07-23] MEDS: ZINC SULFATE PO SCH ×2 (10:06→20:14)
[2020-07-23] MEDS: REMDESIVIR 100 MG in NS 250 ML IV 250 ML IV SCH (10:06)
[2020-07-23] MEDS: VITAMIN D3 125 mcg (5,000 UNITS) PO SCH (10:06)
[2020-07-23] MEDS: LOVENOX INJ 30 MG SYR SC SCH ×2 (10:06→20:15)
[2020-07-23] MEDS: TRICOR TAB 160 MG PO SCH (10:06)
--- NOTE | 2020-07-23 12:58 | PCM.PROG ---
Progress Note - Progress Note for Day of Date of Exam: 07/23/20 - Subjective Subjective: IS BEING TREATED FOR BRONCHOPNEUMONIA DUE TO COVID-19 AND HYPOXIA. TODAY, SHE IS ALERT AND ORIENTED, LYING IN BED ON MORNING ROUNDS. SHE CONTINUES WITH COMPLAINTS OF SHORTNESS OF BREATH, COUGH, AND WEAKNESS. SHE DOES REPORT SLIGHT IMPROVEMENT IN SYMPTOMS SINCE ADMISSION. SHE IS CURRENTLY UTILIZING OXYGEN VIA NASAL CANNULA AT 2 LITERS/MINUTE. ON EXAMINATION, HEART IS REGULAR IN RATE AND RHYTHM. BILATERAL LUNGS ARE NOTED WITH DIMINISHED LUNG SOUNDS THROUGHOUT. ABDOMEN IS ROUND, SOFT, AND NON-TENDER WITH NORMAL BOWEL SOUNDS NOTED IN ALL QUADRANTS. HER VITALS THIS MORNING ARE: 98. 0-90-20-94%NC-154/67. LABS WERE OBTAINED. ABNORMAL LAB VALUES INCLUDE THE FOLLOWING: WBC 12.1, HGB 11.4, HCT 33.9, BUN 27, GLUCOSE 206, FERRITIN 432, TOTAL BILI 0.10, CRP 8.60, TOTAL PROTEIN 5.2, ALBUMIN 2.0. CHEST XRAY REVEALED: No significant change. SHE IS CURRENTLY RECEIVING NS AT KVO, REMDESIVIR 100MG IV DAILY, LEVAQUIN 500MG IV DAILY, DUONEBS QID, PULMICORT NEBS BID, TESSALON PERLES 200MG PO TID, TUSSIONEX 5ML PO Q12H, LOVENOX 30MG SC BID, TRICOR 160MG PO DAILY, AND ZINC 220MG PO BID. WE WILL CONTINUE WITH CURRENT PLAN OF CARE TODAY. OTHERWISE, WE PLAN TO FOLLOW UP WITH AM LABS, CHEST XRAY, AND CONTINUE TO MONITOR. - Past Medical Family Social History Past Med/Fam/Surg Hx: No changes since H&P Allergies: Allergies No Known Drug Allergies Allergy (Verified 07/20/20 13:23) - Review of Systems ROS: No change since H&P - Vital Signs and I&O's Vital Signs: Temperature 98.0 F Pulse Rate 85 Respiratory Rate 28 Blood Pressure 154/67 O2 Sat by Pulse Oximetry 93 Intake and Output: Intake & Output 07/21/20 07/22/20 07/23/20 07/24/20 11:59 11:59 11:59 11:59 Intake Total 1026 / 1026 2372 / 2372 2395 / 2395 Output Total 225 / 225 250 / 250 Balance 801 / 801 2122 / 2122 2395 / 2395 - Physical Exam Oriented: Normal Eyes: Normal Ear: Normal Nose: Normal Throat: Normal Cardiovascular: Normal : Normal Auscultation: Bowel Sounds: Normal Tenderness: Normal Skin: Normal Musculoskeletal: Normal Psychiatric: Normal Mood Description: Calm Affect: Normal Speech Pattern: Appropriate - Laboratory and Diagnostics Result Diagrams: 07/23/20 04:19 07/23/20 04:19 Labs: Laboratory WBC 12.1 X10^3/uL (3.6-10.0) H 07/23/20 04:19 RBC 3.80 X10^6/uL (3.5-5.4) 07/23/20 04:19 Hgb 11.4 g/dL (12.0-16.0) L 07/23/20 04:19 Hct 33.9 % (36.0-47.0) L 07/23/20 04:19 MCV 89.2 fL (80.0-100.0) 07/23/20 04:19 MCH 30.0 pg (27.0-34.0) 07/23/20 04:19 MCHC 33.7 g/dL (33.0-35.0) 07/23/20 04:19 RDW 12.4 % (11.6-16.5) 07/23/20 04:19 Plt Count 213 X10^3/uL (150.0-450.0) 07/23/20 04:19 Plt Count Comment Adequate (ADEQUATE) 07/23/20 04:19 MPV 9.6 fL (7.4-11.0) 07/23/20 04:19 Neut % (Auto) 90.2 % (42.0-75.0) H 07/23/20 04:19 Lymph % (Auto) 4.3 % (21.0-51.0) L 07/23/20 04:19 [place] % (Auto) 5.3 % (0.0-13.0) 07/23/20 04:19 Eos % (Auto) 0.0 % (0.9-2.9) L 07/23/20 04:19 Baso % (Auto) 0.2 % (0.2-1.0) 07/23/20 04:19 Neut # (Auto) 10.9 x10^3/uL (2.2-4.8) H 07/23/20 04:19 Lymph # (Auto) 0.5 X10^3/uL (1.3-2.9) L 07/23/20 04:19 [place] # (Auto) 0.6 x10^3/uL (0.3-0.8) 07/23/20 04:19 Eos # (Auto) 0.0 x10^3/uL (0.0-0.2) 07/23/20 04:19 Baso # (Auto) 0.0 X10^3/uL (0.0-0.1) 07/23/20 04:19 Absolute Nucleated RBC 0.1 /100WBC 07/23/20 04:19 Total Counted 100 07/23/20 04:19 Neutrophils % (Manual) 95 % (39-76) H 07/23/20 04:19 Band Neutrophils % 5 % (0-10) 07/22/20 05:05 Lymphocytes % (Manual) 3 % (13-43) L 07/23/20 04:19 Monocytes % (Manual) 2 % (4-9) L 07/23/20 04:19 Plt Morphology Comment Normal (NORMAL) 07/23/20 04:19 RBC Morphology Normal (NORMAL) 07/23/20 04:19 PT 13.2 SECONDS (11.8-14.3) 07/20/20 14:25 INR Target Range - 07/20/20 14:25 INR 1.03 (0.8-1.3) 07/20/20 14:25 APTT 31.0 SECONDS (22.9-36.5) 07/20/20 14:25 PTT Comment - 07/20/20 14:25 D-Dimer 2.07 ug/ml (0.0-0.57) H* 07/20/20 14:25 Sample Site Rr 07/23/20 05:00 ABG pH 7.470 (7.35-7.45) H 07/23/20 05:00 ABG pCO2 35.0 mmHg (35.0-45.0) 07/23/20 05:00 ABG pO2 72.0 mmHg (80.0-100.0) L 07/23/20 05:00 ABG HCO3 25.5 mmol/L (22-26) 07/23/20 05:00 ABG O2 Saturation 95.0 % (90-100) 07/23/20 05:00 ABG Base Excess 2.0 mmol/L (-2.0-2.0) 07/23/20 05:00 Herbert Test Rr 07/23/20 05:00 A-a Gradient 84.0 mmHg 07/23/20 05:00 FiO2 28.0 07/23/20 05:00 Blood Gas Comments Humble well sw 07/23/20 05:00 Sodium 139 mmol/L (136-145) 07/23/20 04:19 Corrected Sodium 142 mmol/L (136-145) 07/23/20 04:19 Potassium 4.0 mmol/L (3.5-5.1) 07/23/20 04:19 Chloride 106 mmol/L (98-107) 07/23/20 04:19 Carbon Dioxide 25.7 mmol/L (21-32) 07/23/20 04:19 BUN 27 mg/dL (7-18) H 07/23/20 04:19 Creatinine 0.98 mg/dL (0.55-1.02) 07/23/20 04:19 Est GFR (MDRD) Af Amer > 60 (>60) 07/23/20 04:19 Est GFR (MDRD) Non-Af 58 (>60) L 07/23/20 04:19 Glucose 206 mg/dL (65-99) H 07/23/20 04:19 Calcium 8.7 mg/dL (8.5-10.1) 07/23/20 04:19 Corrected Calcium 10.3 mg/dL (8.5-10.1) H 07/23/20 04:19 Magnesium 1.8 mg/dL (1.7-2.9) 07/21/20 22:29 Ferritin 432 ng/mL (8-252) H 07/23/20 04:19 Total Bilirubin 0.10 mg/dL (0.2-1.0) L 07/23/20 04:19 AST 15 Units/L (15-37) 07/23/20 04:19 ALT 19 Units/L (12-78) 07/23/20 04:19 Alkaline Phosphatase 59 Units/L (46-116) 07/23/20 04:19 Creatine Kinase 143 Units/L (26-192) 07/22/20 05:05 CK-MB (CK-2) 1.9 ng/mL (0-4.0) 07/22/20 05:05 CK/CKMB % Calc 1.3 % (<4) 07/22/20 05:05 Troponin I < 0.02 ng/mL (0-1.5) 07/22/20 05:05 C-Reactive Protein 8.60 mg/L (0-3.0) H 07/23/20 04:19 B-Natriuretic Peptide 22.2 pg/mL (0-79) 07/20/20 14:25 Total Protein 5.2 g/dL (6.4-8.2) L 07/23/20 04:19 Albumin 2.0 g/dL (3.4-5.0) L 07/23/20 04:19 Globulin 3.2 g/dL (2.5-4.5) 07/23/20 04:19 Albumin/Globulin Ratio 0.6 Ratio (1.1-2.1) L 07/23/20 04:19 Digoxin < 0.90 ng/mL (0.9-2) L 07/22/20 05:05 Influenza Type A (PCR) Negative (NEGATIVE) 07/21/20 12:30 Influenza Type B (PCR) Negative (NEGATIVE) 07/21/20 12:30 SARS CoV-2 RNA Rapid NESTOR Positive (NEGATIVE) A 07/21/20 12:30 - Plan (1) Bronchopneumonia Status: Acute Plan: NS AT KVO, REMDESIVIR 100MG IV DAILY, LEVAQUIN 500MG IV DAILY, DUONEBS QID, PULMICORT NEBS BID, TESSALON PERLES 200MG PO TID, TUSSIONEX 5ML PO Q12H, LOVENOX 30MG SC BID, TRICOR 160MG PO DAILY, AND ZINC 220MG PO BID (2) COVID-19 Status: Acute (3) Hypoxia Status: Acute
[2020-07-23] MEDS: ARICEPT TAB 5 MG PO SCH (20:14)
[2020-07-23] MEDS: TUSSIONEX PENNKINETIC SUSP PO PRN (20:17)
[2020-07-24 05:08] LABS: BASOPHILS % (AUTO) 0.1 % (0.2-1.0); HEMATOCRIT 33.8 % (36.0-47.0); HEMOGLOBIN 11.5 g/dL (12.0-16.0); LYMPHOCYTES # (AUTO) 0.6 X10^3/uL (1.3-2.9); LYMPHOCYTES % (AUTO) 5.4 % (21.0-51.0); MEAN CORPUSCULAR HEMOGLOBIN 30.5 pg (27.0-34.0); MEAN CORPUSCULAR VOLUME 89.6 fL (80.0-100.0); MEAN PLATELET VOLUME 9.2 fL (7.4-11.0); MONOCYTES # (AUTO) 0.6 x10^3/uL (0.3-0.8); MONOCYTES % (AUTO) 5.6 % (0.0-13.0); NEUTROPHILS # (AUTO) 9.5 x10^3/uL (2.2-4.8); NEUTROPHILS % (AUTO) 88.9 % (42.0-75.0); PLATELET COUNT 217 X10^3/uL (150.0-450.0); RED BLOOD COUNT 3.77 X10^6/uL (3.5-5.4); RED CELL DISTRIBUTION WIDTH 12.5 % (11.6-16.5); WHITE BLOOD COUNT 10.7 X10^3/uL (3.6-10.0)
[2020-07-24 05:23] LABS: ALANINE AMINOTRANSFERASE 21 Units/L (12-78); ALBUMIN 1.9 g/dL (3.4-5.0); ALKALINE PHOSPHATASE 61 Units/L (46-116); ASPARTATE AMINO TRANSFERASE 22 Units/L (15-37); BLOOD UREA NITROGEN 25 mg/dL (7-18); CALCIUM 8.4 mg/dL (8.5-10.1); CARBON DIOXIDE 26.1 mmol/L (21-32); CHLORIDE 106 mmol/L (98-107); COR CA(FOR HYPOALB) 10.1 mg/dL (8.5-10.1); COR NA(FOR HYPERGLY) 141 mmol/L (136-145); CREATININE 0.83 mg/dL (0.55-1.02); SODIUM 138 mmol/L (136-145); TOTAL PROTEIN 5.1 g/dL (6.4-8.2); eGFR NON BLACK RACES > 60 (>60)
[2020-07-24] MEDS: TESSALON PERLES PO SCH ×3 (05:43→21:29)
[2020-07-24] MEDS: SOLU-Medrol 40 MG VIAL IVP SCH ×3 (05:43→21:29)
--- NOTE | 2020-07-24 06:44 | RAD ---
HISTORYPneumonia SOBSTUDYPortable AP [id number] size and contour unchanged. Infiltrates in the right lower lung stable. There is slight progression of airspace disease in the left lower lobe. No developing extrapulmonary air or pleural fluid seen.IMPRESSIONBilateral pneumonia as described, stable in the right lung and slightly increased in the left lower lobe.Electronically signed by: JULEE CRANE (Jul 24, 2020 06:42:56)
[2020-07-24] MEDS: LOVENOX INJ 30 MG SYR SC SCH ×2 (09:04→21:29)
[2020-07-24] MEDS: LEVAQUIN PREMIX IV 250 MG 250 MG/50 ML BAG IV SCH (09:04)
[2020-07-24] MEDS: REMDESIVIR 100 MG in NS 250 ML IV 250 ML IV SCH (09:05)
[2020-07-24] MEDS: TRICOR TAB 160 MG PO SCH (09:08)
[2020-07-24] MEDS: VITAMIN D3 125 mcg (5,000 UNITS) PO SCH (09:08)
[2020-07-24] MEDS: ZINC SULFATE PO SCH ×2 (09:09→21:29)
[2020-07-24] MEDS: DUONEB 0.5 MG/3 MG (3 mL) NEB SCH ×4 (09:12→21:16)
[2020-07-24] MEDS: PULMICORT NEB TX 0.5 MG NEB SCH ×2 (09:12→21:16)
--- NOTE | 2020-07-24 10:57 | PCM.PROG ---
Progress Note Progress Note for Day of Date of Exam: 07/24/20 Subjective Subjective: PT IS A 79 YEAR OLD FEMEALE ADMITTED FOR BRONCHOPNEUMONIA DUE TO COVID-19(POSITIVE ON 07/21) AND HYPOXIA. PT REPORTS SOME IMPROVEMENT IN RESPIRATORY SYMPTOMS BUT STILL FEELS SOME SHORTNESS OF BREATH. SHE IS CURRENTLY REQUIRING 2L NC. LABS/IMAGING: WBC 10.7, HGB 11.5, PLT 217, NA 138, K 4.1, CR 0.83, GLUCOSE 205, CRP 8.60>4.5. CHEST XRAY REVEALED: Bilateral pneumonia as described, stable in the right lung and slightly increased in the left lower lobe. HOSPITAL/TREATMENT COURSE INCLUDES: NS AT KVO, REMDESIVIR 100MG IV DAILY, LEVAQUIN 500MG IV DAILY, DUONEBS QID, PULMICORT NEBS BID, TESSALON PERLES 200MG PO TID, TUSSIONEX 5ML PO Q12H, LOVENOX 30MG SC BID, TRICOR 160MG PO DAILY, AND ZINC 220MG PO BID. PT WILL NEED AMBULATAORY OXYGEN EVALUATION FOR HOME OXYGEN TO BE SET UP. CONTINUE WITH CURRENT PLAN OF CARE TODAY. MONITOR AND FOLLOW UP WITH LABS/IMAGING IN THE MORNING. Past Medical Family Social History Past Med/Fam/Surg Hx: No changes since H&P Allergies: Allergies No Known Drug Allergies Allergy (Verified 07/20/20 13:23) Review of Systems ROS: No change since H&P Vital Signs and I&O's Vital Signs: Temperature 97.9 F Pulse Rate 83 Respiratory Rate 19 Blood Pressure 143/63 O2 Sat by Pulse Oximetry 93 Intake and Output: Intake & Output 07/21/20 07/22/20 07/23/20 07/24/20 23:59 23:59 23:59 23:59 Intake Total 1926 / 1927 3269 / 3269 1318 / 1318 256 / 256 Output Total 475 / 475 Balance 1452 / 1452 3269 / 3269 1318 / 1318 256 / 256 Physical Exam Oriented: Normal Eyes: Normal Ear: Normal Nose: Normal Throat: Normal Respiratory: Diminished Cardiovascular: Normal : Normal Auscultation: Bowel Sounds: Normal Tenderness: Normal Skin: Normal Musculoskeletal: Normal Psychiatric: Normal Mood Description: Calm Affect: Normal Speech Pattern: Appropriate Laboratory and Diagnostics Result Diagrams: 07/24/20 04:37 07/24/20 04:37 Labs: Laboratory WBC 10.7 X10^3/uL (3.6-10.0) H 07/24/20 04:37 RBC 3.77 X10^6/uL (3.5-5.4) 07/24/20 04:37 Hgb 11.5 g/dL (12.0-16.0) L 07/24/20 04:37 Hct 33.8 % (36.0-47.0) L 07/24/20 04:37 MCV 89.6 fL (80.0-100.0) 07/24/20 04:37 MCH 30.5 pg (27.0-34.0) 07/24/20 04:37 MCHC 34.0 g/dL (33.0-35.0) 07/24/20 04:37 RDW 12.5 % (11.6-16.5) 07/24/20 04:37 Plt Count 217 X10^3/uL (150.0-450.0) 07/24/20 04:37 Plt Count Comment Adequate (ADEQUATE) 07/23/20 04:19 MPV 9.2 fL (7.4-11.0) 07/24/20 04:37 Neut % (Auto) 88.9 % (42.0-75.0) H 07/24/20 04:37 Lymph % (Auto) 5.4 % (21.0-51.0) L 07/24/20 04:37 [place] % (Auto) 5.6 % (0.0-13.0) 07/24/20 04:37 Eos % (Auto) 0.0 % (0.9-2.9) L 07/24/20 04:37 Baso % (Auto) 0.1 % (0.2-1.0) L 07/24/20 04:37 Neut # (Auto) 9.5 x10^3/uL (2.2-4.8) H 07/24/20 04:37 Lymph # (Auto) 0.6 X10^3/uL (1.3-2.9) L 07/24/20 04:37 [place] # (Auto) 0.6 x10^3/uL (0.3-0.8) 07/24/20 04:37 Eos # (Auto) 0.0 x10^3/uL (0.0-0.2) 07/24/20 04:37 Baso # (Auto) 0.0 X10^3/uL (0.0-0.1) 07/24/20 04:37 Absolute Nucleated RBC 0.0 /100WBC 07/24/20 04:37 Total Counted 100 07/23/20 04:19 Neutrophils % (Manual) 95 % (39-76) H 07/23/20 04:19 Band Neutrophils % 5 % (0-10) 07/22/20 05:05 Lymphocytes % (Manual) 3 % (13-43) L 07/23/20 04:19 Monocytes % (Manual) 2 % (4-9) L 07/23/20 04:19 Plt Morphology Comment Normal (NORMAL) 07/23/20 04:19 RBC Morphology Normal (NORMAL) 07/23/20 04:19 PT 13.2 SECONDS (11.8-14.3) 07/20/20 14:25 INR Target Range - 07/20/20 14:25 INR 1.03 (0.8-1.3) 07/20/20 14:25 APTT 31.0 SECONDS (22.9-36.5) 07/20/20 14:25 PTT Comment - 07/20/20 14:25 D-Dimer 2.07 ug/ml (0.0-0.57) H* 07/20/20 14:25 Sample Site Rr 07/23/20 05:00 ABG pH 7.470 (7.35-7.45) H 07/23/20 05:00 ABG pCO2 35.0 mmHg (35.0-45.0) 07/23/20 05:00 ABG pO2 72.0 mmHg (80.0-100.0) L 07/23/20 05:00 ABG HCO3 25.5 mmol/L (22-26) 07/23/20 05:00 ABG O2 Saturation 95.0 % (90-100) 07/23/20 05:00 ABG Base Excess 2.0 mmol/L (-2.0-2.0) 07/23/20 05:00 Herebrt Test Rr 07/23/20 05:00 A-a Gradient 84.0 mmHg 07/23/20 05:00 FiO2 28.0 07/23/20 05:00 Blood Gas Comments Humble well sw 07/23/20 05:00 Sodium 138 mmol/L (136-145) 07/24/20 04:37 Corrected Sodium 141 mmol/L (136-145) 07/24/20 04:37 Potassium 4.1 mmol/L (3.5-5.1) 07/24/20 04:37 Chloride 106 mmol/L (98-107) 07/24/20 04:37 Carbon Dioxide 26.1 mmol/L (21-32) 07/24/20 04:37 BUN 25 mg/dL (7-18) H 07/24/20 04:37 Creatinine 0.83 mg/dL (0.55-1.02) 07/24/20 04:37 Est GFR (MDRD) Af Amer > 60 (>60) 07/24/20 04:37 Est GFR (MDRD) Non-Af > 60 (>60) 07/24/20 04:37 Glucose 205 mg/dL (65-99) H 07/24/20 04:37 Calcium 8.4 mg/dL (8.5-10.1) L 07/24/20 04:37 Corrected Calcium 10.1 mg/dL (8.5-10.1) 07/24/20 04:37 Magnesium 1.8 mg/dL (1.7-2.9) 07/21/20 22:29 Ferritin 499 ng/mL (8-252) H 07/24/20 04:37 Total Bilirubin 0.10 mg/dL (0.2-1.0) L 07/24/20 04:37 AST 22 Units/L (15-37) 07/24/20 04:37 ALT 21 Units/L (12-78) 07/24/20 04:37 Alkaline Phosphatase 61 Units/L (46-116) 07/24/20 04:37 Creatine Kinase 143 Units/L (26-192) 07/22/20 05:05 CK-MB (CK-2) 1.9 ng/mL (0-4.0) 07/22/20 05:05 CK/CKMB % Calc 1.3 % (<4) 07/22/20 05:05 Troponin I < 0.02 ng/mL (0-1.5) 07/22/20 05:05 C-Reactive Protein 4.50 mg/L (0-3.0) H 07/24/20 04:37 B-Natriuretic Peptide 22.2 pg/mL (0-79) 07/20/20 14:25 Total Protein 5.1 g/dL (6.4-8.2) L 07/24/20 04:37 Albumin 1.9 g/dL (3.4-5.0) L 07/24/20 04:37 Globulin 3.2 g/dL (2.5-4.5) 07/24/20 04:37 Albumin/Globulin Ratio 0.6 Ratio (1.1-2.1) L 07/24/20 04:37 Digoxin < 0.90 ng/mL (0.9-2) L 07/22/20 05:05 Influenza Type A (PCR) Negative (NEGATIVE) 07/21/20 12:30 Influenza Type B (PCR) Negative (NEGATIVE) 07/21/20 12:30 SARS CoV-2 RNA Rapid NESTOR Positive (NEGATIVE) A 07/21/20 12:30 Plan (1) Bronchopneumonia: Status: Acute Plan: NS AT KVO, REMDESIVIR 100MG IV DAILY, LEVAQUIN 500MG IV DAILY, DUONEBS QID, PULMICORT NEBS BID, TESSALON PERLES 200MG PO TID, TUSSIONEX 5ML PO Q12H, LOVENOX 30MG SC BID, TRICOR 160MG PO DAILY, AND ZINC 220MG PO BID (2) COVID-19: Status: Acute (3) Hypoxia: Status: Acute
[2020-07-24] MEDS: NS 1000 ML 1,000 ML IV SCH (21:29)
[2020-07-24] MEDS: TUSSIONEX PENNKINETIC SUSP PO PRN (21:29)
[2020-07-24] MEDS: ARICEPT TAB 5 MG PO SCH (21:29)
[2020-07-25 05:17] LABS: BASOPHILS % (AUTO) 0.1 % (0.2-1.0); HEMATOCRIT 33.2 % (36.0-47.0); HEMOGLOBIN 11.1 g/dL (12.0-16.0); LYMPHOCYTES # (AUTO) 0.5 X10^3/uL (1.3-2.9); LYMPHOCYTES % (AUTO) 5.9 % (21.0-51.0); MEAN CORPUSCULAR HEMOGLOBIN 30.4 pg (27.0-34.0); MEAN CORPUSCULAR HGB CONC 33.5 g/dL (33.0-35.0); MEAN CORPUSCULAR VOLUME 90.7 fL (80.0-100.0); MEAN PLATELET VOLUME 9.7 fL (7.4-11.0); MONOCYTES # (AUTO) 0.4 x10^3/uL (0.3-0.8); MONOCYTES % (AUTO) 4.8 % (0.0-13.0); NEUTROPHILS # (AUTO) 7.2 x10^3/uL (2.2-4.8); NEUTROPHILS % (AUTO) 89.2 % (42.0-75.0); PLATELET COUNT 225 X10^3/uL (150.0-450.0); RED BLOOD COUNT 3.66 X10^6/uL (3.5-5.4); RED CELL DISTRIBUTION WIDTH 12.7 % (11.6-16.5); WHITE BLOOD COUNT 8.1 X10^3/uL (3.6-10.0)
[2020-07-25 05:30] LABS: ALANINE AMINOTRANSFERASE 23 Units/L (12-78); ALBUMIN 1.9 g/dL (3.4-5.0); ALKALINE PHOSPHATASE 57 Units/L (46-116); ASPARTATE AMINO TRANSFERASE 17 Units/L (15-37); BLOOD UREA NITROGEN 27 mg/dL (7-18); CALCIUM 8.5 mg/dL (8.5-10.1); CARBON DIOXIDE 27.2 mmol/L (21-32); CHLORIDE 105 mmol/L (98-107); COR CA(FOR HYPOALB) 10.2 mg/dL (8.5-10.1); COR NA(FOR HYPERGLY) 140 mmol/L (136-145); CREATININE 0.78 mg/dL (0.55-1.02); SODIUM 138 mmol/L (136-145); TOTAL PROTEIN 4.9 g/dL (6.4-8.2); eGFR NON BLACK RACES > 60 (>60)
--- NOTE | 2020-07-25 06:00 | RAD ---
HISTORYSOBSTUDYPortable AP [id number] heart size. There is no change in extent or distribution bilateral infiltrates, left lung greater than right. There is no new consolidation, developing extrapulmonary air or large pleural effusion.IMPRESSIONNo change in appearance of bilateral pneumonia.Electronically signed by: JULEE CRANE (Jul 25, 2020 05:58:29)
[2020-07-25 06:13] LABS: PLATELET MORPHOLOGY COMMENT NORMAL (NORMAL)
[2020-07-25] MEDS: TESSALON PERLES PO SCH (06:13)
[2020-07-25] MEDS: SOLU-Medrol 40 MG VIAL IVP SCH (06:13)
[2020-07-25 09:12] VITALS: BP 137/63
[2020-07-25] MEDS: PULMICORT NEB TX 0.5 MG NEB SCH (09:23)
[2020-07-25] MEDS: DUONEB 0.5 MG/3 MG (3 mL) NEB SCH ×2 (09:23→11:53)
[2020-07-25] MEDS: LEVAQUIN PREMIX IV 250 MG 250 MG/50 ML BAG IV SCH (09:24)
[2020-07-25] MEDS: LOVENOX INJ 30 MG SYR SC SCH (09:24)
[2020-07-25] MEDS: TRICOR TAB 160 MG PO SCH (09:25)
[2020-07-25] MEDS: VITAMIN D3 125 mcg (5,000 UNITS) PO SCH (09:25)
[2020-07-25] MEDS: ZINC SULFATE PO SCH (09:25)
--- NOTE | 2020-07-25 10:48 | W.DIS.FURT ---
Summary of Discharge Discharge Summary of Date Date of Exam: 07/25/20 Admission Date Date of Admission: 07/20/20 Admission Diagnosis Patient Problems (Updated 07/21/20 @ 01:27 by Aminah Shah) Bronchopneumonia (Acute) J18.0 COVID-19 (Acute) U07.1 Influenza (Acute) J11.1 Hypoxia (Acute) R09.02 Hospital Course: PT IS A 79 YEAR OLD FEMEALE ADMITTED FOR BRONCHOPNEUMONIA DUE TO COVID- 19(POSITIVE ON 07/21) AND HYPOXIA. HER HOSPITAL/TREATMENT COURSE INCLUDED: NS AT KVO, REMDESIVIR 100MG IV DAILY, LEVAQUIN 500MG IV DAILY, DUONEBS QID, PULMICORT NEBS BID, TESSALON PERLES 200MG PO TID, TUSSIONEX 5ML PO Q12H, LOVENOX 30MG SC BID, TRICOR 160MG PO DAILY, AND ZINC 220MG PO BID. HER SUPPLEMENTAL OXYGEN WAS ABLE TO BE WEANED DOWN TO 2L NC. LABS/IMAGING: WBC 8.1, HGB 11.1, PLT 225, NA 138, K 4.4, CR 0.78, GLUCOSE 204, CRP 2.5. AMBULATORY OXYGEN TEST WAS PERFORMED, PT REQUIRED 2L NC AMBULATAORY OXYGEN, HOME OXYGEN WAS SET UP. PT WAS DISCHARGED IN STABLE CONDITION, INSTRUCTED TO FOLLOW UP WITH PCP IN 3-5 DAYS. Vital Signs: Vital Signs (72 hours) 07/22/20 12:00 07/22/20 13:41 07/22/20 16:00 Temperature 98.0 F 97.7 F Pulse Rate 86 91 H 95 H Respiratory Rate 25 H 21 Blood Pressure 154/58 145/66 O2 Sat by Pulse Oximetry 94 L 96 94 L 07/22/20 16:24 07/22/20 20:00 07/22/20 20:56 Temperature 97.8 F Pulse Rate 94 H 97 H 104 H Respiratory Rate 26 H Blood Pressure 133/70 O2 Sat by Pulse Oximetry 94 L 97 96 07/22/20 22:15 07/22/20 22:30 07/22/20 22:45 Temperature Pulse Rate 102 H 99 H 105 H Respiratory Rate 30 H 27 H 25 H Blood Pressure O2 Sat by Pulse Oximetry 92 L 92 L 92 L 07/22/20 23:00 07/22/20 23:15 07/22/20 23:30 Temperature Pulse Rate 99 H 97 H 100 H Respiratory Rate 22 21 23 Blood Pressure 138/60 O2 Sat by Pulse Oximetry 93 L 92 L 93 L 07/22/20 23:45 07/23/20 00:00 07/23/20 00:15 Temperature 98.2 F Pulse Rate 94 H 95 H 94 H Respiratory Rate 20 20 20 Blood Pressure 124/58 O2 Sat by Pulse Oximetry 94 L 94 L 95 07/23/20 00:30 07/23/20 00:45 07/23/20 01:00 Temperature Pulse Rate 97 H 92 H 93 H Respiratory Rate 30 H 20 21 Blood Pressure 128/62 O2 Sat by Pulse Oximetry 95 93 L 93 L 07/23/20 01:15 07/23/20 01:30 07/23/20 01:45 Temperature Pulse Rate 89 95 H 90 Respiratory Rate 19 23 20 Blood Pressure O2 Sat by Pulse Oximetry 93 L 93 L 92 L 07/23/20 02:00 07/23/20 02:15 07/23/20 02:30 Temperature Pulse Rate 93 H 92 H 90 Respiratory Rate 21 21 19 Blood Pressure 132/60 O2 Sat by Pulse Oximetry 93 L 94 L 94 L 07/23/20 02:45 07/23/20 03:00 07/23/20 03:15 Temperature Pulse Rate 90 96 H 90 Respiratory Rate 18 23 19 Blood Pressure 137/60 O2 Sat by Pulse Oximetry 94 L 93 L 93 L 07/23/20 03:30 07/23/20 03:45 07/23/20 04:00 Temperature 98.0 F Pulse Rate 101 H 92 H 91 H Respiratory Rate 31 H 22 21 Blood Pressure 144/63 O2 Sat by Pulse Oximetry 92 L 92 L 91 L 07/23/20 04:15 07/23/20 04:30 07/23/20 04:45 Temperature Pulse Rate 98 H 91 H 87 Respiratory Rate 25 H 21 20 Blood Pressure O2 Sat by Pulse Oximetry 94 L 93 L 94 L 07/23/20 05:00 07/23/20 05:15 07/23/20 05:30 Temperature Pulse Rate 90 89 93 H Respiratory Rate 22 21 24 Blood Pressure 136/61 O2 Sat by Pulse Oximetry 95 94 L 92 L 07/23/20 05:45 07/23/20 06:00 07/23/20 06:15 Temperature Pulse Rate 90 90 85 Respiratory Rate 21 19 18 Blood Pressure 146/66 O2 Sat by Pulse Oximetry 94 L 95 96 07/23/20 06:30 07/23/20 06:45 07/23/20 07:00 Temperature Pulse Rate 86 87 89 Respiratory Rate 19 18 25 H Blood Pressure 137/61 O2 Sat by Pulse Oximetry 95 94 L 95 07/23/20 07:15 07/23/20 07:30 07/23/20 07:45 Temperature Pulse Rate 85 85 86 Respiratory Rate 19 19 20 Blood Pressure O2 Sat by Pulse Oximetry 95 95 94 L 07/23/20 08:00 07/23/20 08:15 07/23/20 08:30 Temperature 98.2 F Pulse Rate 90 82 81 Respiratory Rate 28 H 21 19 Blood Pressure 154/67 O2 Sat by Pulse Oximetry 91 L 93 L 94 L 07/23/20 08:45 07/23/20 09:00 07/23/20 09:01 Temperature Pulse Rate 86 95 H 100 H Respiratory Rate 21 53 H 34 H Blood Pressure 157/65 O2 Sat by Pulse Oximetry 94 L 93 L 93 L 07/23/20 09:18 07/23/20 09:25 07/23/20 09:30 Temperature Pulse Rate 94 H 85 82 Respiratory Rate 30 H Blood Pressure 153/67 O2 Sat by Pulse Oximetry 91 L 93 L 98 07/23/20 09:45 07/23/20 10:00 07/23/20 10:15 Temperature Pulse Rate 106 H 101 H 104 H Respiratory Rate 30 H 29 H 27 H Blood Pressure 142/62 O2 Sat by Pulse Oximetry 92 L 94 L 94 L 07/23/20 10:30 07/23/20 10:45 07/23/20 11:00 Temperature Pulse Rate 104 H 98 H 99 H Respiratory Rate 31 H 26 H 24 Blood Pressure 149/65 O2 Sat by Pulse Oximetry 93 L 95 93 L 07/23/20 11:15 07/23/20 11:30 07/23/20 11:45 Temperature Pulse Rate 94 H 90 88 Respiratory Rate 21 22 21 Blood Pressure O2 Sat by Pulse Oximetry 94 L 94 L 94 L 07/23/20 12:00 07/23/20 12:15 07/23/20 12:19 Temperature 98.7 F Pulse Rate 94 H 98 H 94 H Respiratory Rate 22 33 H Blood Pressure 140/65 O2 Sat by Pulse Oximetry 94 L 93 L 93 L 07/23/20 12:30 07/23/20 12:45 07/23/20 13:00 Temperature Pulse Rate 109 H 117 H 119 H Respiratory Rate 32 H 33 H 26 H Blood Pressure 161/71 O2 Sat by Pulse Oximetry 93 L 94 L 95 07/23/20 13:15 07/23/20 13:30 07/23/20 13:45 Temperature Pulse Rate 119 H 117 H 109 H Respiratory Rate 30 H 43 H 41 H Blood Pressure O2 Sat by Pulse Oximetry 95 92 L 96 07/23/20 14:00 07/23/20 14:15 07/23/20 14:30 Temperature Pulse Rate 106 H 107 H 102 H Respiratory Rate 27 H 27 H 23 Blood Pressure 149/64 O2 Sat by Pulse Oximetry 94 L 95 95 07/23/20 14:45 07/23/20 15:00 07/23/20 15:15 Temperature Pulse Rate 101 H 110 H 107 H Respiratory Rate 23 33 H Blood Pressure 140/65 O2 Sat by Pulse Oximetry 94 L 96 95 07/23/20 15:30 07/23/20 15:45 07/23/20 16:00 Temperature 98 F Pulse Rate 105 H 105 H 101 H Respiratory Rate 35 H 34 H 25 H Blood Pressure 141/65 O2 Sat by Pulse Oximetry 95 95 95 07/23/20 16:15 07/23/20 17:01 07/23/20 20:00 Temperature 97.7 F Pulse Rate 97 H 101 H 101 H Respiratory Rate 25 H 24 Blood Pressure 140/61 O2 Sat by Pulse Oximetry 94 L 96 94 L 07/23/20 20:20 07/23/20 23:30 07/23/20 23:45 Temperature Pulse Rate 102 H 105 H 103 H Respiratory Rate 24 23 Blood Pressure O2 Sat by Pulse Oximetry 98 90 L 93 L 07/24/20 00:00 07/24/20 00:15 07/24/20 00:30 Temperature 98.0 F Pulse Rate 101 H 99 H 101 H Respiratory Rate 22 19 19 Blood Pressure 134/63 O2 Sat by Pulse Oximetry 92 L 94 L 94 L 07/24/20 00:45 07/24/20 01:00 07/24/20 01:15 Temperature Pulse Rate 103 H 100 H 96 H Respiratory Rate 20 19 18 Blood Pressure 141/62 O2 Sat by Pulse Oximetry 93 L 93 L 93 L 07/24/20 01:30 07/24/20 01:45 07/24/20 02:00 Temperature Pulse Rate 94 H 93 H 94 H Respiratory Rate 18 18 19 Blood Pressure 141/64 O2 Sat by Pulse Oximetry 93 L 93 L 93 L 07/24/20 02:15 07/24/20 02:30 07/24/20 02:45 Temperature Pulse Rate 91 H 92 H 97 H Respiratory Rate 17 17 18 Blood Pressure O2 Sat by Pulse Oximetry 93 L 94 L 95 07/24/20 03:00 07/24/20 03:15 07/24/20 03:30 Temperature Pulse Rate 93 H 94 H 88 Respiratory Rate 19 18 17 Blood Pressure 133/61 O2 Sat by Pulse Oximetry 93 L 95 94 L 07/24/20 03:45 07/24/20 04:00 07/24/20 04:15 Temperature 98.0 F Pulse Rate 88 91 H 90 Respiratory Rate 18 22 23 Blood Pressure 144/63 O2 Sat by Pulse Oximetry 94 L 94 L 94 L 07/24/20 04:30 07/24/20 04:45 07/24/20 05:00 Temperature Pulse Rate 89 102 H 85 Respiratory Rate 20 30 H 22 Blood Pressure 125/58 O2 Sat by Pulse Oximetry 94 L 89 L 92 L 07/24/20 05:15 07/24/20 05:30 07/24/20 05:45 Temperature Pulse Rate 85 82 89 Respiratory Rate 19 18 38 H Blood Pressure O2 Sat by Pulse Oximetry 92 L 93 L 95 07/24/20 06:00 07/24/20 06:15 07/24/20 06:30 Temperature Pulse Rate 83 79 80 Respiratory Rate 20 17 17 Blood Pressure 127/61 O2 Sat by Pulse Oximetry 94 L 95 95 07/24/20 06:45 07/24/20 07:00 07/24/20 07:15 Temperature Pulse Rate 80 77 81 Respiratory Rate 16 17 17 Blood Pressure 128/60 O2 Sat by Pulse Oximetry 95 94 L 93 L 07/24/20 07:30 07/24/20 07:45 07/24/20 08:00 Temperature Pulse Rate 79 77 91 H Respiratory Rate 21 18 31 H Blood Pressure O2 Sat by Pulse Oximetry 93 L 93 L 94 L 07/24/20 08:01 07/24/20 08:10 07/24/20 08:15 Temperature Pulse Rate 91 H 83 83 Respiratory Rate 43 H 27 H 28 H Blood Pressure 166/125 143/63 O2 Sat by Pulse Oximetry 94 L 91 L 92 L 07/24/20 08:30 07/24/20 08:45 07/24/20 09:06 Temperature 97.9 F Pulse Rate 83 83 85 Respiratory Rate 20 19 Blood Pressure O2 Sat by Pulse Oximetry 93 L 93 L 92 L 07/24/20 09:12 07/24/20 09:15 07/24/20 09:30 Temperature Pulse Rate 83 81 98 H Respiratory Rate 19 25 H Blood Pressure O2 Sat by Pulse Oximetry 93 L 98 91 L 07/24/20 09:45 07/24/20 10:00 07/24/20 10:15 Temperature Pulse Rate 101 H 100 H 112 H Respiratory Rate 21 22 26 H Blood Pressure 135/64 O2 Sat by Pulse Oximetry 89 L 91 L 92 L 07/24/20 10:30 07/24/20 10:45 07/24/20 11:00 Temperature Pulse Rate 104 H 102 H 104 H Respiratory Rate 25 H 23 25 H Blood Pressure 150/69 O2 Sat by Pulse Oximetry 90 L 91 L 90 L 07/24/20 11:15 07/24/20 11:30 07/24/20 11:45 Temperature Pulse Rate 96 H 92 H 91 H Respiratory Rate 24 22 21 Blood Pressure O2 Sat by Pulse Oximetry 90 L 92 L 92 L 07/24/20 12:00 07/24/20 12:15 07/24/20 12:18 Temperature Pulse Rate 92 H 97 H 99 H Respiratory Rate 22 27 H Blood Pressure 127/60 O2 Sat by Pulse Oximetry 93 L 99 94 L 07/24/20 12:30 07/24/20 12:45 07/24/20 13:00 Temperature Pulse Rate 122 H 124 H 113 H Respiratory Rate 42 H 30 H 27 H Blood Pressure 121/59 O2 Sat by Pulse Oximetry 93 L 92 L 90 L 07/24/20 13:15 07/24/20 13:30 07/24/20 13:45 Temperature Pulse Rate 109 H 106 H 116 H Respiratory Rate 24 21 27 H Blood Pressure O2 Sat by Pulse Oximetry 89 L 90 L 93 L 07/24/20 14:00 07/24/20 14:15 07/24/20 14:30 Temperature Pulse Rate 112 H 103 H 104 H Respiratory Rate 27 H 22 24 Blood Pressure 127/57 O2 Sat by Pulse Oximetry 90 L 91 L 93 L 07/24/20 14:45 07/24/20 15:00 07/24/20 15:15 Temperature Pulse Rate 101 H 110 H 100 H Respiratory Rate 22 32 H 24 Blood Pressure O2 Sat by Pulse Oximetry 93 L 92 L 92 L 07/24/20 15:30 07/24/20 15:45 07/24/20 16:00 Temperature 97.8 F Pulse Rate 101 H 97 H 96 H Respiratory Rate 25 H 23 25 H Blood Pressure O2 Sat by Pulse Oximetry 94 L 93 L 93 L 07/24/20 16:05 07/24/20 17:13 07/24/20 19:00 Temperature Pulse Rate 103 H 102 H Respiratory Rate 27 H Blood Pressure 150/67 148/65 O2 Sat by Pulse Oximetry 95 96 07/24/20 20:00 07/24/20 20:15 07/24/20 21:16 Temperature 98.1 F Pulse Rate 95 H 101 H 110 H Respiratory Rate 23 26 H Blood Pressure 155/68 O2 Sat by Pulse Oximetry 95 94 L 95 07/24/20 22:30 07/24/20 22:45 07/24/20 23:00 Temperature Pulse Rate 100 H 100 H 94 H Respiratory Rate 23 30 H 19 Blood Pressure O2 Sat by Pulse Oximetry 93 L 95 94 L 07/24/20 23:15 07/24/20 23:30 07/24/20 23:45 Temperature Pulse Rate 91 H 96 H 91 H Respiratory Rate 18 20 17 Blood Pressure O2 Sat by Pulse Oximetry 95 94 L 94 L 07/25/20 00:00 07/25/20 00:15 07/25/20 00:30 Temperature 97.9 F Pulse Rate 92 H 93 H 93 H Respiratory Rate 19 19 21 Blood Pressure 141/61 O2 Sat by Pulse Oximetry 94 L 91 L 92 L 07/25/20 00:45 07/25/20 01:00 07/25/20 01:02 Temperature Pulse Rate 91 H 89 96 H Respiratory Rate 19 18 20 Blood Pressure 141/61 O2 Sat by Pulse Oximetry 93 L 94 L 94 L 07/25/20 01:15 07/25/20 01:30 07/25/20 01:45 Temperature Pulse Rate 88 92 H 92 H Respiratory Rate 17 18 21 Blood Pressure O2 Sat by Pulse Oximetry 94 L 95 94 L 07/25/20 02:00 07/25/20 02:15 07/25/20 02:30 Temperature Pulse Rate 86 85 84 Respiratory Rate 18 17 17 Blood Pressure O2 Sat by Pulse Oximetry 94 L 94 L 95 07/25/20 02:45 07/25/20 03:00 07/25/20 03:15 Temperature Pulse Rate 83 83 82 Respiratory Rate 17 17 18 Blood Pressure O2 Sat by Pulse Oximetry 92 L 92 L 93 L 07/25/20 03:30 07/25/20 03:45 07/25/20 04:00 Temperature 98.0 F Pulse Rate 81 80 84 Respiratory Rate 16 17 18 Blood Pressure 125/56 O2 Sat by Pulse Oximetry 92 L 94 L 94 L 07/25/20 04:15 07/25/20 04:30 07/25/20 04:45 Temperature Pulse Rate 87 81 86 Respiratory Rate 17 16 19 Blood Pressure O2 Sat by Pulse Oximetry 94 L 94 L 94 L 07/25/20 05:00 07/25/20 05:15 07/25/20 05:30 Temperature Pulse Rate 79 80 79 Respiratory Rate 17 15 16 Blood Pressure O2 Sat by Pulse Oximetry 95 93 L 93 L 07/25/20 05:45 07/25/20 06:00 07/25/20 06:15 Temperature Pulse Rate 78 78 94 H Respiratory Rate 17 16 40 H Blood Pressure O2 Sat by Pulse Oximetry 94 L 94 L 94 L 07/25/20 06:30 07/25/20 06:45 07/25/20 07:00 Temperature Pulse Rate 84 80 79 Respiratory Rate 28 H 21 19 Blood Pressure O2 Sat by Pulse Oximetry 92 L 92 L 94 L 07/25/20 07:15 07/25/20 07:30 07/25/20 07:45 Temperature Pulse Rate 77 81 77 Respiratory Rate 17 18 18 Blood Pressure O2 Sat by Pulse Oximetry 95 94 L 94 L 07/25/20 08:00 07/25/20 08:15 07/25/20 08:30 Temperature Pulse Rate 74 72 Respiratory Rate 17 17 Blood Pressure 137/63 O2 Sat by Pulse Oximetry 93 L 93 L 07/25/20 08:45 07/25/20 09:00 07/25/20 09:23 Temperature Pulse Rate 82 87 85 Respiratory Rate 19 29 H Blood Pressure O2 Sat by Pulse Oximetry 94 L 94 L 93 L Labs: Laboratory Last Values WBC 8.1 X10^3/uL (3.6-10.0) 07/25/20 04:05 RBC 3.66 X10^6/uL (3.5-5.4) 07/25/20 04:05 Hgb 11.1 g/dL (12.0-16.0) L 07/25/20 04:05 Hct 33.2 % (36.0-47.0) L 07/25/20 04:05 MCV 90.7 fL (80.0-100.0) 07/25/20 04:05 MCH 30.4 pg (27.0-34.0) 07/25/20 04:05 MCHC 33.5 g/dL (33.0-35.0) 07/25/20 04:05 RDW 12.7 % (11.6-16.5) 07/25/20 04:05 Plt Count 225 X10^3/uL (150.0-450.0) 07/25/20 04:05 Plt Count Comment Adequate (ADEQUATE) 07/25/20 04:05 MPV 9.7 fL (7.4-11.0) 07/25/20 04:05 Neut % (Auto) 89.2 % (42.0-75.0) H 07/25/20 04:05 Lymph % (Auto) 5.9 % (21.0-51.0) L 07/25/20 04:05 [place] % (Auto) 4.8 % (0.0-13.0) 07/25/20 04:05 Eos % (Auto) 0.0 % (0.9-2.9) L 07/25/20 04:05 Baso % (Auto) 0.1 % (0.2-1.0) L 07/25/20 04:05 Neut # (Auto) 7.2 x10^3/uL (2.2-4.8) H 07/25/20 04:05 Lymph # (Auto) 0.5 X10^3/uL (1.3-2.9) L 07/25/20 04:05 [place] # (Auto) 0.4 x10^3/uL (0.3-0.8) 07/25/20 04:05 Eos # (Auto) 0.0 x10^3/uL (0.0-0.2) 07/25/20 04:05 Baso # (Auto) 0.0 X10^3/uL (0.0-0.1) 07/25/20 04:05 Absolute Nucleated RBC 0.1 /100WBC 07/25/20 04:05 Total Counted 100 07/25/20 04:05 Neutrophils % (Manual) 94 % (39-76) H 07/25/20 04:05 Band Neutrophils % 5 % (0-10) 07/22/20 05:05 Lymphocytes % (Manual) 6 % (13-43) L 07/25/20 04:05 Monocytes % (Manual) 2 % (4-9) L 07/23/20 04:19 Plt Morphology Comment Normal (NORMAL) 07/25/20 04:05 RBC Morphology Normal (NORMAL) 07/25/20 04:05 PT 13.2 SECONDS (11.8-14.3) 07/20/20 14:25 INR Target Range - 07/20/20 14:25 INR 1.03 (0.8-1.3) 07/20/20 14:25 APTT 31.0 SECONDS (22.9-36.5) 07/20/20 14:25 PTT Comment - 07/20/20 14:25 D-Dimer 2.07 ug/ml (0.0-0.57) H* 07/20/20 14:25 Sample Site Rr 07/23/20 05:00 ABG pH 7.470 (7.35-7.45) H 07/23/20 05:00 ABG pCO2 35.0 mmHg (35.0-45.0) 07/23/20 05:00 ABG pO2 72.0 mmHg (80.0-100.0) L 07/23/20 05:00 ABG HCO3 25.5 mmol/L (22-26) 07/23/20 05:00 ABG O2 Saturation 95.0 % (90-100) 07/23/20 05:00 ABG Base Excess 2.0 mmol/L (-2.0-2.0) 07/23/20 05:00 Herbert Test Rr 07/23/20 05:00 A-a Gradient 84.0 mmHg 07/23/20 05:00 FiO2 28.0 07/23/20 05:00 Blood Gas Comments Humble well 07/23/20 05:00 Sodium 138 mmol/L (136-145) 07/25/20 04:05 Corrected Sodium 140 mmol/L (136-145) 07/25/20 04:05 Potassium 4.4 mmol/L (3.5-5.1) 07/25/20 04:05 Chloride 105 mmol/L (98-107) 07/25/20 04:05 Carbon Dioxide 27.2 mmol/L (21-32) 07/25/20 04:05 BUN 27 mg/dL (7-18) H 07/25/20 04:05 Creatinine 0.78 mg/dL (0.55-1.02) 07/25/20 04:05 Est GFR (MDRD) Af Amer > 60 (>60) 07/25/20 04:05 Est GFR (MDRD) Non-Af > 60 (>60) 07/25/20 04:05 Glucose 204 mg/dL (65-99) H 07/25/20 04:05 Calcium 8.5 mg/dL (8.5-10.1) 07/25/20 04:05 Corrected Calcium 10.2 mg/dL (8.5-10.1) H 07/25/20 04:05 Magnesium 2.0 mg/dL (1.7-2.9) 07/25/20 04:05 Ferritin 480 ng/mL (8-252) H 07/25/20 04:05 Total Bilirubin 0.20 mg/dL (0.2-1.0) 07/25/20 04:05 AST 17 Units/L (15-37) 07/25/20 04:05 ALT 23 Units/L (12-78) 07/25/20 04:05 Alkaline Phosphatase 57 Units/L (46-116) 07/25/20 04:05 Creatine Kinase 143 Units/L (26-192) 07/22/20 05:05 CK-MB (CK-2) 1.9 ng/mL (0-4.0) 07/22/20 05:05 CK/CKMB % Calc 1.3 % (<4) 07/22/20 05:05 Troponin I < 0.02 ng/mL (0-1.5) 07/22/20 05:05 C-Reactive Protein 2.50 mg/L (0-3.0) 07/25/20 04:05 B-Natriuretic Peptide 22.2 pg/mL (0-79) 07/20/20 14:25 Total Protein 4.9 g/dL (6.4-8.2) L 07/25/20 04:05 Albumin 1.9 g/dL (3.4-5.0) L 07/25/20 04:05 Globulin 3.0 g/dL (2.5-4.5) 07/25/20 04:05 Albumin/Globulin Ratio 0.6 Ratio (1.1-2.1) L 07/25/20 04:05 Digoxin < 0.90 ng/mL (0.9-2) L 07/22/20 05:05 Influenza Type A (PCR) Negative (NEGATIVE) 07/21/20 12:30 Influenza Type B (PCR) Negative (NEGATIVE) 07/21/20 12:30 SARS CoV-2 RNA Rapid NESTOR Positive (NEGATIVE) A 07/21/20 12:30 Reason For Visit: COVID BRONCHOPNEUMONIA,HYPOXIA Discharge Date Discharge Date: 07/25/20 Discharge Diagnosis All Active Problems (Updated 07/21/20 @ 01:27 by Aminah Shah) Finger laceration (Acute) Bronchopneumonia (Acute) COVID-19 (Acute) Influenza (Acute) Hypoxia (Acute) Plan of Treatment: Continue with present treatment and follow up plan. Pt is to keep follow up appointment as instructed and take medications as ordered. Discharge Medications Discharge Medications: No Known Drug Allergies Allergy (Verified 07/20/20 13:23) CONTINUE taking the following medications albuterol sulfate 1 puff INHALATION Q6H PRN 07/20/20 [History] donepezil 5 mg PO HS 07/20/20 [History] New Prescriptions Lactobac. rhamnosus GG-inulin [Culturelle Probiotics] 1 cap PO DAILY #30 cap 07/23/20 [Rx] apixaban [Eliquis] 2.5 mg PO BID #60 tab 07/23/20 [Rx] benzonatate 200 mg PO TID PRN #30 cap 07/23/20 [Rx] budesonide 1 ea NEB BIDRESP #50 ml 07/23/20 [Rx] ipratropium-albuterol 1 neb NEB TID #90 each 07/23/20 [Rx] levofloxacin 500 mg PO DAILY #10 tab 07/23/20 [Rx] methylprednisolone [Medrol (Damian)] See Rx Instructions .ROUTE .COMPLEX #1 ea 07/23/20 [Rx] Follow up and Referral Follow Up: 1 Week Discharge Disposition Discharge Disposition: HOME Discharge Condition: STABLE Discharge Plan Discharge Plan Hospital Course: PT IS A 79 YEAR OLD FEMEALE ADMITTED FOR BRONCHOPNEUMONIA DUE TO COVID- 19(POSITIVE ON 07/21) AND HYPOXIA. HER HOSPITAL/TREATMENT COURSE INCLUDED: NS AT KVO, REMDESIVIR 100MG IV DAILY, LEVAQUIN 500MG IV DAILY, DUONEBS QID, PULMICORT NEBS BID, TESSALON PERLES 200MG PO TID, TUSSIONEX 5ML PO Q12H, LOVENOX 30MG SC BID, TRICOR 160MG PO DAILY, AND ZINC 220MG PO BID. HER SUPPLEMENTAL OXYGEN WAS ABLE TO BE WEANED DOWN TO 2L NC. LABS/IMAGING: WBC 8.1, HGB 11.1, PLT 225, NA 138, K 4.4, CR 0.78, GLUCOSE 204, CRP 2.5. AMBULATORY OXYGEN TEST WAS PERFORMED, PT REQUIRED 2L NC AMBULATAORY OXYGEN, HOME OXYGEN WAS SET UP. PT WAS DISCHARGED IN STABLE CONDITION, INSTRUCTED TO FOLLOW UP WITH PCP IN 3-5 DAYS. Patient Disposition: 01 HOME, SELF-CARE Condition: Stable Health Concerns: Post Hospitalization: new medications and changes needed to prevent readmission or further decline. Pt educated and given instructions on all concerns. Plan of Treatment: Continue with present treatment and follow up plan. Pt is to keep follow up appointment as instructed and take medications as ordered. Prescriptions: New ipratropium-albuterol [ipratropium-albuterol] 3 ML solution for nebulization 1 neb NEB TID Qty: 90 RF: 1 budesonide 0.5 mg/2 mL Suspension For Nebulization 1 ea NEB BIDRESP Qty: 50 RF: 1 levofloxacin 500 mg Tablet 500 mg PO DAILY Qty: 10 RF: 0 methylprednisolone [Medrol (Damian)] 4 mg Tablets,Dose Pack See Rx Instructions .ROUTE .COMPLEX Qty: 1 RF: 0 Eliquis 2.5 mg Tablet 2.5 mg PO BID Qty: 60 RF: 0 [facility] 10 billion cell -200 mg Capsule 1 cap PO DAILY Qty: 30 RF: 1 Continued donepezil 5 mg tablet 5 mg PO HS RF: 0 albuterol sulfate 90 mcg/actuation HFA aerosol inhaler 1 puff INHALATION Q6H PRNRF: 0 Changed benzonatate 100 mg capsule 200 mg PO TID PRNQty: 30 RF: 0 Discontinued azithromycin 250 mg tablet 250 mg PO DAILY RF: 0 oseltamivir 75 mg capsule 75 mg PO BID RF: 0 Follow ups/Referrals Follow ups/Referrals: EFRAIN ALMARAZ [Primary Care Provider] - 1 WEEK Instructions Activity Restrictions/Additional Instructions: Diet as tolerated. Activity as tolerated Stand Alone Forms: Excuse From Work or School, Precautions for COVID19, Patient Portal, Social Distancing
== END 2020-07-25 13:36 | disposition home or self-care (01) | DRG 177 ==
LOC: ER 13:17 → ICU 20:47
PROVIDERS: ADMIT Internal Medicine; ATTEND Internal Medicine

== ENCOUNTER 2023-12-02 10:44 | Inpatient (IN) ==
--- NOTE | 2023-12-02 11:18 | DR.GENAD ---
HPI Time Seen Time Seen by Provider: 12/02/23 11:17 PCP Primary Care Physician: Efrain Nixon Complaint/Symptoms Chief Complaint Doctors Comments: Patient has had a cough since she was diagnosed with covid-19 in 2019.Patient's daughter lives with her and states that patient has had worsening cough productive of clear sputum in the past 2 days and sob. Fell twice; on sunday and today unto her bottom. Patient denies: sore throat,fever,MUÑOZ,weakness,dizziness,n,v,chest pain,edema. Chief Complaint:: Patient has had a cough since Covid of 2019, but it seems to ave gotten worse over the ast few days per her daughter. She has HX of Alzheimers and Expressive dysphasia. She denies NVD, or fever but her O2 Sat has been running low. Self Treatment fo Chief Complaint: Cough medicine COVID-19 Coronavirus risk:travel/contact w/high risk person: No Has patient experienced Coronavirus symptoms: No Source History Provided: Patient and Family Member Mode of Arrival Mode of Arrival: Wheelchair Timing Onset of Chief Complaint: 11/30/23 PMH PMH Past Medical History: Yes Past Medical History: Alzheimers and Dementia Past Surgical History: Yes Surgical History: Family History History of Family Medical Conditions: Yes Family Medical History: Hypertension Social History Does patient currently use any type of tobacco product: No Have you used tobacco products in the last 12 months: No Type of Tobacco Use: None Does any household member use tobacco: No Alcohol Use: None Do you use any recreational Drugs:: No Lives With: Family Lives Where: Home Travel Risk Coronavirus risk:travel/contact w/high risk person: No Has patient experienced Coronavirus symptoms: No Infectious screening In the last 2 months have you had wt loss of >10#?: NO Have you had fever, night sweats or hemotysis?: No Have you traveled outside the country in the last 6 months?: No Isolation: Standard ROS Review of Systems Constitutional: No Symptoms Reported Eyes: No Symptoms Reported ENTM: No Symptoms Reported Respiratoy: Productive Cough (clear sputum) and Short of Breath Cardiovascular: No Symptoms Reported Gastrointestinal/Abdominal: No Symptoms Reported Genitourinary: No Symptoms Reported Neurological: No Symptoms Reported Musculoskeletal: No Symptoms Reported Integumentary: No Symptoms Reported Hematologic/Lymphatic: No Symptoms Reported Endocrine: No Symptoms Reported Psychiatric: No Symptoms Reported All Other Systems: Reviewed and Negative PE Vital Signs Vitals: Vital Signs Temperature 98.2 F Pulse Rate 72 Pulse Rate 82 Respiratory Rate 20 Blood Pressure 149/66 O2 Sat by Pulse Oximetry 95 O2 Sat by Pulse Oximetry 92 General Limitations: No Limitations General Appearance: Alert and In No Apparent Distress Head Head Exam: Normal Inspection Eyes Eye exam: Normal Appearance ENT ENT Exam: Normal Exam External Ear Exam: Normal External Inspection TM/Canal Exam: Bilateral: Normal Nose Exam: Normal Nose Exam Mouth Exam: Normal Inspection Throat Exam: Normal Inspection Neck Neck Exam: Normal Inspection Chest Chest Inspection: Normal Inspection Respiratory Respiratory Exam: Normal Lung Sounds Bilat Respiratory Exam: Bilateral: Clear to Auscultation Cardiovascular Cardiovascular Exam: Regular Rate and Normal Rhythm Abdominal Exam Abdominal Exam: Normal Inspection, Normal Bowel Sounds and Soft Extremities Extremities Exam: Normal Inspection Back Back Exam: Normal Inspection Neurologic Neurological Exam: Alert and Oriented X3 Psychiatric Psychiatric Exam: Normal Affect and Normal Mood Skin Skin Exam: Warm, Dry, Intact and Normal Color MDM Differential Diagnosis Differential Diagnosis: Electrolyte disorder,Bronchitis,Pneumonia,hypoxemia COURSE Treatment Treatment: Patient was brought to a monitored room, IV access was initiated. Сергей trinidad's ABG on room air revealed a pO2 of 59 and O2 sat of 92%. Patient was placed on 2 L O2 nasal cannula. Her current O2 sat is 94 to 96%. Patient received Solu-Medrol 125 mg IV and was given a DuoNeb in the ED. Patient's chest x-ray did not reveal an acute process, the chest CTA revealed abnormal central airway mucous plugging consistent with bronchitis/no PE. Patient's CBC was stable, CMP was stable, BNP was 24.4. Discussed case with Dr. Rodriges. Dr. Rodriges has accepted the patient to his service for further evaluation. [facility]OR Labs Reviewed Laboratory Results Reviewed?: Yes 12/02/23 11:57 12/02/23 11:57 Laboratory: WBC 5.1 X10^3/uL (3.6-10.0) 12/02/23 11:57 RBC 4.53 X10^6/uL (3.5-5.4) 12/02/23 11:57 Hgb 13.7 g/dL (12.0-16.0) 12/02/23 11:57 Hct 40.5 % (36.0-47.0) 12/02/23 11:57 MCV 89.4 fL (80.0-100.0) 12/02/23 11:57 MCH 30.2 pg (27.0-34.0) 12/02/23 11:57 MCHC 33.8 g/dL (33.0-35.0) 12/02/23 11:57 RDW 12.6 % (11.6-16.5) 12/02/23 11:57 Plt Count 174 X10^3/uL (150.0-450.0) 12/02/23 11:57 MPV 8.5 fL (7.4-11.0) 12/02/23 11:57 Neut % (Auto) 64.2 % (42.0-75.0) 12/02/23 11:57 Lymph % (Auto) 22.0 % (21.0-51.0) 12/02/23 11:57 [place] % (Auto) 12.4 % (0.0-13.0) 12/02/23 11:57 Eos % (Auto) 0.8 % (0.9-2.9) L 12/02/23 11:57 Baso % (Auto) 0.6 % (0.2-1.0) 12/02/23 11:57 Neut # (Auto) 3.2 x10^3/uL (2.2-4.8) 12/02/23 11:57 Lymph # (Auto) 1.1 X10^3/uL (1.3-2.9) L 12/02/23 11:57 [place] # (Auto) 0.6 x10^3/uL (0.3-0.8) 12/02/23 11:57 Eos # (Auto) 0.0 x10^3/uL (0.0-0.2) 12/02/23 11:57 Baso # (Auto) 0.0 X10^3/uL (0.0-0.1) 12/02/23 11:57 Absolute Nucleated RBC 0.1 /100WBC 12/02/23 11:57 D-Dimer 0.58 ug/ml (0.0-0.57) H 12/02/23 11:43 Sample Site Rrad 12/02/23 12:01 ABG pH 7.460 (7.35-7.45) H 12/02/23 12:01 ABG pCO2 42.0 mmHg (35.0-45.0) 12/02/23 12:01 ABG pO2 59.0 mmHg (80.0-100.0) L 12/02/23 12:01 ABG HCO3 29.9 mmol/L (22-26) H 12/02/23 12:01 ABG O2 Saturation 92.0 % (90-100) 12/02/23 12:01 ABG Base Excess 5.5 mmol/L (-2.0-2.0) H 12/02/23 12:01 Herbert Test Pos 12/02/23 12:01 A-a Gradient 38.0 mmHg 12/02/23 12:01 FiO2 21.0 12/02/23 12:01 Blood Gas Comments Pt finn well elj cdn 12/02/23 12:01 Sodium 138 mmol/L (136-145) 12/02/23 11:57 Corrected Sodium TNP 12/02/23 11:57 Potassium 4.1 mmol/L (3.5-5.1) 12/02/23 11:57 Chloride 103 mmol/L (98-107) 12/02/23 11:57 Carbon Dioxide 33.2 mmol/L (21-32) H 12/02/23 11:57 BUN 13 mg/dL (7-18) 12/02/23 11:57 Creatinine 0.84 mg/dL (0.55-1.02) 12/02/23 11:57 Est GFR (MDRD) Af Amer > 60 (>60) 12/02/23 11:57 Est GFR (MDRD) Non-Af > 60 (>60) 12/02/23 11:57 Glucose 104 mg/dL (65-99) H 12/02/23 11:57 Calcium 9.1 mg/dL (8.5-10.1) 12/02/23 11:57 Corrected Calcium 10.1 mg/dL (8.5-10.1) 12/02/23 11:57 Total Bilirubin 0.30 mg/dL (0.2-1.0) 12/02/23 11:57 AST 16 Units/L (15-37) 12/02/23 11:57 ALT 20 Units/L (12-78) 12/02/23 11:57 Alkaline Phosphatase 86 Units/L (46-116) 12/02/23 11:57 B-Natriuretic Peptide 24.4 pg/mL (0-79) 12/02/23 11:57 Total Protein 6.4 g/dL (6.4-8.2) 12/02/23 11:57 Albumin 2.7 g/dL (3.4-5.0) L 12/02/23 11:57 Globulin 3.7 g/dL (2.5-4.5) 12/02/23 11:57 Albumin/Globulin Ratio 0.7 Ratio (1.1-2.1) L 12/02/23 11:57 Opioid Opioid Risk Tool Age (Ludwig box if 16-45): No History of Preadolescent Sexual Abuse: No Total: 0 Total Score Risk Category: Low Risk Copyright: Mayank HAYNES predicting aberrant behaviors Discharge Plan Diagnosis Discharge Problem: Hypoxemia, Acute bronchitis Discharge Plan Patient Disposition: ADMITTED INPATIENT Condition: Stable Prescriptions: No Action benzonatate 100 mg capsule 200 mg PO TID PRNQty: 30 0RF Rx Instructions: take two capsule three times a day as needed for cough memantine 10 mg tablet 10 mg PO BID solifenacin 10 mg tablet 10 mg PO QDAY biotin 5 mg Capsule 5 mg PO QDAY donepezil 10 mg tablet 10 mg PO QDAY docusate sodium [Stool Softener] 100 mg Capsule 100 mg PO QDAY cholecalciferol (vitamin D3) [Vitamin D3] 50 mcg (2,000 unit) Capsule 50 mcg PO QDAY One-A-Day Women's 50 Plus 400-20 mcg Tablet 1 tab PO QDAY Health Concerns: Post Hospitalization: new medications and changes needed to prevent readmission or further decline. Pt educated and given instructions on all concerns. Plan of Treatment: Continue with present treatment and follow up plan. Pt is to keep follow up appointment as instructed and take medications as ordered. Orders to Discharge Patient Discharge Orders: Transfer (Routine); Ordered 12/02/23 Ordered By: Janet Lewis Follow ups/Referrals Follow ups/Referrals: EFRAIN NIXON [Primary Care Provider] - 3 days Instructions Stand Alone Forms: Post Hospital Follow Up Care
[2023-12-02 12:02] LABS: MEAN PLATELET VOLUME 8.5 fL (7.4-11.0); MONOCYTES # (AUTO) 0.6 x10^3/uL (0.3-0.8); MONOCYTES % (AUTO) 12.4 % (0.0-13.0); RED CELL DISTRIBUTION WIDTH 12.6 % (11.6-16.5); WHITE BLOOD COUNT 5.1 X10^3/uL (3.6-10.0)
[2023-12-02 12:05] LABS: ABG ALLEN TEST POS; ABG BASE EXCESS 5.5 mmol/L (-2.0-2.0); ABG HCO3 29.9 mmol/L (22-26)
[2023-12-02 12:06] LABS: BASOPHILS % (AUTO) 0.6 % (0.2-1.0); EOSINOPHILS % (AUTO) 0.8 % (0.9-2.9); HEMATOCRIT 40.5 % (36.0-47.0); HEMOGLOBIN 13.7 g/dL (12.0-16.0); LYMPHOCYTES # (AUTO) 1.1 X10^3/uL (1.3-2.9); MEAN CORPUSCULAR HEMOGLOBIN 30.2 pg (27.0-34.0); MEAN CORPUSCULAR HGB CONC 33.8 g/dL (33.0-35.0); MEAN CORPUSCULAR VOLUME 89.4 fL (80.0-100.0); NEUTROPHILS # (AUTO) 3.2 x10^3/uL (2.2-4.8); NEUTROPHILS % (AUTO) 64.2 % (42.0-75.0); PLATELET COUNT 174 X10^3/uL (150.0-450.0); RED BLOOD COUNT 4.53 X10^6/uL (3.5-5.4)
[2023-12-02 12:15] LABS: ALANINE AMINOTRANSFERASE 20 Units/L (12-78); ALBUMIN 2.7 g/dL (3.4-5.0); ALKALINE PHOSPHATASE 86 Units/L (46-116); ASPARTATE AMINO TRANSFERASE 16 Units/L (15-37); BLOOD UREA NITROGEN 13 mg/dL (7-18); CALCIUM 9.1 mg/dL (8.5-10.1); CARBON DIOXIDE 33.2 mmol/L (21-32); CHLORIDE 103 mmol/L (98-107); COR CA(FOR HYPOALB) 10.1 mg/dL (8.5-10.1); CREATININE 0.84 mg/dL (0.55-1.02); GLUCOSE 104 mg/dL (65-99); POTASSIUM 4.1 mmol/L (3.5-5.1); SODIUM 138 mmol/L (136-145); TOTAL PROTEIN 6.4 g/dL (6.4-8.2); eGFR NON BLACK RACES > 60 (>60)
--- NOTE | 2023-12-02 13:31 | CT ---
EXAM: CT PULMONARY ANGIOGRAM CHEST WITH CONTRAST (PE PROTOCOL) HISTORY: hypoxia, pos d-dimer, looking for a pe; COMPARISON: None. TECHNIQUE: Axial CT images were obtained through the chest after the intravenous administration of contrast. Cor onal reformatted images were included. Maximum intensity projection (MIP) images were performed per [facility] angiogram protocol. Informed written consent was obtained prior to contrast administration. All CT scans at this facility use dose modulation, iterative reconstruction, and/or weight based dosi ng when appropriate to reduce radiation dose to as low as reasonably achievable. FINDINGS: HEART AND PULMONARY ARTERIES: No evidence of right ventricular strain. No filling defects in the pul monary arteries to suggest emboli. SUPPORT DEVICES: None LYMPH NODES: Prominent perihilar mayank tissue which may be reactive LUNGS AND PLEURA: Lungs show no focal pneumonia. AIRWAYS: Airways are abnormal particularly in the lower lobes showing airway wall thickening and mult ifocal areas of mucous plugging favoring bronchitis UPPER ABDOMEN: Normal BONES: Normal IMPRESSION: No evidence of pulmonary embolism. Central airways are abnormally thickened with multifocal areas of mucous plugging in the lung bases favoring acute bronchitis. THIS IS AN ELECTRONICALLY VERIFIED FINAL REPORT 12/02/2023 1:27 PM - Electronically signed by Peewee Meeks MD
--- NOTE | 2023-12-02 13:35 | RAD ---
EXAM:CHESTHISTORY:cough since Covid of 2019, but it seems to ave gotten worse over the ast few days per her daughter. She has HX of Alzheimers and Expressive dysphasia. her O2 Sat has been running low.;COMPARISON:None.TECHNIQUE:Frontal view of the chest was submitted for interpretation.FINDINGS:The cardiomediastinal silhouette is within normal limits. Lungs show no definite focal disease.IMPRESSION:No definite focal lung disease.THIS IS AN ELECTRONICALLY VERIFIED FINAL REPORT12/02/2023 1:32 PM - Electronically signed by Peewee Meeks MD
[2023-12-02] MEDS: DUONEB 0.5 MG/3 MG (3 mL) NEB ONE (14:14)
[2023-12-02] MEDS: SOLU-Medrol 125 MG VIAL IVP ONE (14:14)
[2023-12-02] MEDS: NS 1,000 ML IV 1,000 ML IV SCH (15:55)
[2023-12-02] MEDS: DUONEB 0.5 MG/3 MG (3 mL) NEB SCH ×2 (16:45→21:03)
[2023-12-02] MEDS: ROBITUSSIN DM PO PRN (18:28)
[2023-12-02] MEDS: TESSALON PERLES PO PRN (21:38)
[2023-12-02] MEDS: NAMENDA TAB 10 MG PO SCH (21:38)
[2023-12-02] MEDS: SOLU-Medrol 40 MG VIAL IVP SCH (21:39)
[2023-12-03 00:55] VITALS: BMI 23.2
[2023-12-03 06:34] LABS: ALANINE AMINOTRANSFERASE 18 Units/L (12-78); ALBUMIN 2.2 g/dL (3.4-5.0); ALKALINE PHOSPHATASE 71 Units/L (46-116); ASPARTATE AMINO TRANSFERASE 12 Units/L (15-37); BASOPHILS % (AUTO) 0.1 % (0.2-1.0); BLOOD UREA NITROGEN 19 mg/dL (7-18); CALCIUM 8.5 mg/dL (8.5-10.1); CARBON DIOXIDE 26.1 mmol/L (21-32); CHLORIDE 108 mmol/L (98-107); COR CA(FOR HYPOALB) 9.9 mg/dL (8.5-10.1); COR NA(FOR HYPERGLY) 142 mmol/L (136-145); CREATININE 0.79 mg/dL (0.55-1.02); GLUCOSE 143 mg/dL (65-99); HEMOGLOBIN 12.6 g/dL (12.0-16.0); LYMPHOCYTES # (AUTO) 0.6 X10^3/uL (1.3-2.9); LYMPHOCYTES % (AUTO) 8.8 % (21.0-51.0); MEAN CORPUSCULAR HEMOGLOBIN 30.2 pg (27.0-34.0); MEAN CORPUSCULAR VOLUME 88.7 fL (80.0-100.0); MEAN PLATELET VOLUME 8.8 fL (7.4-11.0); MONOCYTES # (AUTO) 0.3 x10^3/uL (0.3-0.8); MONOCYTES % (AUTO) 3.6 % (0.0-13.0); NEUTROPHILS # (AUTO) 6.4 x10^3/uL (2.2-4.8); NEUTROPHILS % (AUTO) 87.5 % (42.0-75.0); PLATELET COUNT 175 X10^3/uL (150.0-450.0); POTASSIUM 4.7 mmol/L (3.5-5.1); RED BLOOD COUNT 4.17 X10^6/uL (3.5-5.4); RED CELL DISTRIBUTION WIDTH 12.6 % (11.6-16.5); SODIUM 141 mmol/L (136-145); TOTAL PROTEIN 5.9 g/dL (6.4-8.2); WHITE BLOOD COUNT 7.3 X10^3/uL (3.6-10.0); eGFR NON BLACK RACES > 60 (>60)
[2023-12-03] MEDS ORDERED: BIOTIN 5 MG PO SCH (09:00)
[2023-12-03] MEDS: TAB-A-VITE PO SCH (09:21)
[2023-12-03] MEDS: DETROL LA 4 MG CAP EXT REL PO SCH (09:22)
[2023-12-03] MEDS: VITAMIN D3 25 mcg (1,000 UNITS) PO SCH (09:22)
[2023-12-03] MEDS: COLACE CAP 100 MG PO SCH (09:23)
[2023-12-03] MEDS: ARICEPT TAB 10 MG PO SCH (09:23)
[2023-12-03] MEDS: ROBITUSSIN DM PO SCH (10:26)
--- NOTE | 2023-12-03 18:06 | DR.H&P ---
H&P History & Physical for Day of: H&P Date: 12/02/23 Chief Complaint Chief Complaint: CCC, WEAKNESS, RECENT FALL Allergies Allergies Allergy/AdvReac Type Severity Reaction Status Date / Time No Known Drug Allergies Allergy Verified 08/12/20 12:27 History of Present Illness History of Present Illness: Patient has had a cough since she was diagnosed with covid-19 in 2019.Patient's daughter lives with her and states that patient has had worsening cough productive of clear sputum in the past 2 days and sob. Fell twice; on sunday and today unto her bottom. Patient denies: sore throat,fever,MUÑOZ,weakness,dizziness,n,v,chest pain,edema. Past Medical History Past Medical History: Alzheimers and Dementia Past Surgical History Surgical History: Other Family History Family Medical History: Diabetes Mellitus and Heart Failure Social History Does patient currently use any type of tobacco product: No Have you used tobacco products in the last 12 months: No Type of Tobacco Use: None Does any household member use tobacco: Yes Alcohol Use: None Drug Use: None Medications Home Medications: Home Medications Medication Instructions Recorded Confirmed Type biotin 5 mg capsule 5 mg PO QDAY 12/02/23 12/02/23 History cholecalciferol (vitamin D3) 50 50 mcg PO QDAY 12/02/23 12/02/23 History mcg (2,000 unit) capsule (Vitamin D3) docusate sodium 100 mg capsule 100 mg PO QDAY 12/02/23 12/02/23 History (Stool Softener) donepezil 10 mg tablet 10 mg PO QDAY 12/02/23 12/02/23 History memantine 10 mg tablet 10 mg PO BID 12/02/23 12/02/23 History hjteqskzjvrc-dxzrrapr-pnszcgc-folic 1 tab PO QDAY 12/02/23 12/02/23 History acid 400 mcg-vit K1 20 mcg tablet solifenacin 10 mg tablet 10 mg PO QDAY 12/02/23 12/02/23 History Labs 12/03/23 05:55 12/03/23 05:55 Labs: Laboratory WBC 7.3 X10^3/uL (3.6-10.0) 12/03/23 05:55 RBC 4.17 X10^6/uL (3.5-5.4) 12/03/23 05:55 Hgb 12.6 g/dL (12.0-16.0) 12/03/23 05:55 Hct 37.0 % (36.0-47.0) 12/03/23 05:55 MCV 88.7 fL (80.0-100.0) 12/03/23 05:55 MCH 30.2 pg (27.0-34.0) 12/03/23 05:55 MCHC 34.0 g/dL (33.0-35.0) 12/03/23 05:55 RDW 12.6 % (11.6-16.5) 12/03/23 05:55 Plt Count 175 X10^3/uL (150.0-450.0) 12/03/23 05:55 MPV 8.8 fL (7.4-11.0) 12/03/23 05:55 Neut % (Auto) 87.5 % (42.0-75.0) H 12/03/23 05:55 Lymph % (Auto) 8.8 % (21.0-51.0) L 12/03/23 05:55 [place] % (Auto) 3.6 % (0.0-13.0) 12/03/23 05:55 Eos % (Auto) 0.0 % (0.9-2.9) L 12/03/23 05:55 Baso % (Auto) 0.1 % (0.2-1.0) L 12/03/23 05:55 Neut # (Auto) 6.4 x10^3/uL (2.2-4.8) H 12/03/23 05:55 Lymph # (Auto) 0.6 X10^3/uL (1.3-2.9) L 12/03/23 05:55 [place] # (Auto) 0.3 x10^3/uL (0.3-0.8) 12/03/23 05:55 Eos # (Auto) 0.0 x10^3/uL (0.0-0.2) 12/03/23 05:55 Baso # (Auto) 0.0 X10^3/uL (0.0-0.1) 12/03/23 05:55 Absolute Nucleated RBC 0.1 /100WBC 12/03/23 05:55 D-Dimer 0.58 ug/ml (0.0-0.57) H 12/02/23 11:43 Sample Site Rrad 12/02/23 12:01 ABG pH 7.460 (7.35-7.45) H 12/02/23 12:01 ABG pCO2 42.0 mmHg (35.0-45.0) 12/02/23 12:01 ABG pO2 59.0 mmHg (80.0-100.0) L 12/02/23 12:01 ABG HCO3 29.9 mmol/L (22-26) H 12/02/23 12:01 ABG O2 Saturation 92.0 % (90-100) 12/02/23 12:01 ABG Base Excess 5.5 mmol/L (-2.0-2.0) H 12/02/23 12:01 Herbert Test Pos 12/02/23 12:01 A-a Gradient 38.0 mmHg 12/02/23 12:01 FiO2 21.0 12/02/23 12:01 Blood Gas Comments Pt finn well elj cdn 12/02/23 12:01 Sodium 141 mmol/L (136-145) 12/03/23 05:55 Corrected Sodium 142 mmol/L (136-145) 12/03/23 05:55 Potassium 4.7 mmol/L (3.5-5.1) 12/03/23 05:55 Chloride 108 mmol/L (98-107) H 12/03/23 05:55 Carbon Dioxide 26.1 mmol/L (21-32) 12/03/23 05:55 BUN 19 mg/dL (7-18) H 12/03/23 05:55 Creatinine 0.79 mg/dL (0.55-1.02) 12/03/23 05:55 Est GFR (MDRD) Af Amer > 60 (>60) 12/03/23 05:55 Est GFR (MDRD) Non-Af > 60 (>60) 12/03/23 05:55 Glucose 143 mg/dL (65-99) H 12/03/23 05:55 Calcium 8.5 mg/dL (8.5-10.1) 12/03/23 05:55 Corrected Calcium 9.9 mg/dL (8.5-10.1) 12/03/23 05:55 Total Bilirubin 0.20 mg/dL (0.2-1.0) 12/03/23 05:55 AST 12 Units/L (15-37) L 12/03/23 05:55 ALT 18 Units/L (12-78) 12/03/23 05:55 Alkaline Phosphatase 71 Units/L (46-116) 12/03/23 05:55 B-Natriuretic Peptide 24.4 pg/mL (0-79) 12/02/23 11:57 Total Protein 5.9 g/dL (6.4-8.2) L 12/03/23 05:55 Albumin 2.2 g/dL (3.4-5.0) L 12/03/23 05:55 Globulin 3.7 g/dL (2.5-4.5) 12/03/23 05:55 Albumin/Globulin Ratio 0.6 Ratio (1.1-2.1) L 12/03/23 05:55 SARS CoV-2 RNA Rapid NESTOR Negative (NEGATIVE) 12/02/23 14:56 Review of Systems Constitutional: Weakness Eyes: No Symptoms Reported ENT: Nose Discharge Respiratory: Cough, Shortness of Breath and SOB with Excertion Gastrointestinal: Nausea Genitourinary: Incontinence Musculoskeletal: No Symptoms Reported Skin: Bruising Neurological: No Symptoms Reported Physical Exam Vital Signs: Vital Signs Temperature 98.3 F Temperature 98.2 F Pulse Rate [Right Brachial] 89 Pulse Rate [Right Brachial] 87 Respiratory Rate 20 Respiratory Rate 18 Blood Pressure [Right Arm] 139/61 Blood Pressure [Right Arm] 137/60 O2 Sat by Pulse Oximetry 95 O2 Sat by Pulse Oximetry 92 Oriented: Normal Eyes: Normal Nose: Normal Throat: Normal and Dry Respiratory: Wheezes Throughout Cardiovascular: Normal Auscultation: Bowel Sounds: Normal Tenderness: Epigastric and Mild Skin: Decreased Turgur Musculoskeletal: Motor Deficit Mood Description: Calm Affect: Flat Speech Pattern: Clear and Appropriate (CHRONIC DEMENTIA, LIMITED APPROPRIATE VERBAL RESPONSES) Assessment/Plan (1) Bronchopneumonia: Narrative Support Text: ADMIT, CTA OF LUNGS ON ADMISSION IV ATBX, RESP THERAPY VERIFY HOME MEDICATION PHYSICAL THERAPY EVALUATION BP CONTROL, REPEAT AM LABS AND CXR Status: Acute (2) Dementia: Status: Acute (3) Weakness: Status: Acute
[2023-12-04 05:47] LABS: BASOPHILS % (AUTO) 0.1 % (0.2-1.0); HEMATOCRIT 35.5 % (36.0-47.0); HEMOGLOBIN 11.9 g/dL (12.0-16.0); LYMPHOCYTES # (AUTO) 0.7 X10^3/uL (1.3-2.9); LYMPHOCYTES % (AUTO) 6.2 % (21.0-51.0); MEAN CORPUSCULAR HGB CONC 33.4 g/dL (33.0-35.0); MEAN CORPUSCULAR VOLUME 89.9 fL (80.0-100.0); MEAN PLATELET VOLUME 8.8 fL (7.4-11.0); MONOCYTES # (AUTO) 0.6 x10^3/uL (0.3-0.8); MONOCYTES % (AUTO) 4.8 % (0.0-13.0); NEUTROPHILS # (AUTO) 10.4 x10^3/uL (2.2-4.8); NEUTROPHILS % (AUTO) 88.9 % (42.0-75.0); PLATELET COUNT 176 X10^3/uL (150.0-450.0); RED BLOOD COUNT 3.95 X10^6/uL (3.5-5.4); RED CELL DISTRIBUTION WIDTH 12.7 % (11.6-16.5); WHITE BLOOD COUNT 11.6 X10^3/uL (3.6-10.0)
[2023-12-04 05:50] LABS: ALANINE AMINOTRANSFERASE 21 Units/L (12-78); ALBUMIN 2.2 g/dL (3.4-5.0); ALKALINE PHOSPHATASE 64 Units/L (46-116); ASPARTATE AMINO TRANSFERASE 15 Units/L (15-37); BLOOD UREA NITROGEN 24 mg/dL (7-18); CALCIUM 8.3 mg/dL (8.5-10.1); CARBON DIOXIDE 25.1 mmol/L (21-32); CHLORIDE 110 mmol/L (98-107); COR CA(FOR HYPOALB) 9.7 mg/dL (8.5-10.1); COR NA(FOR HYPERGLY) 144 mmol/L (136-145); CREATININE 0.81 mg/dL (0.55-1.02); GLUCOSE 155 mg/dL (65-99); POTASSIUM 4.5 mmol/L (3.5-5.1); SODIUM 143 mmol/L (136-145); TOTAL PROTEIN 5.7 g/dL (6.4-8.2); eGFR NON BLACK RACES > 60 (>60)
[2023-12-04] MEDS: ROCEPHIN VIAL 1 GRAM 1 G in NS 100 ML IV 100 ML IV SCH (11:20)
--- NOTE | 2023-12-04 13:02 | RAD ---
EXAM: CHEST, 1 VIEW HISTORY: SOB; COMPARISON: Prior study or studies were utilized for comparison during interpretation with the most relevant jesse ed 12/02/2023 TECHNIQUE: CHEST, 1 VIEW FINDINGS: Chest: Lines and tubes: None Mediastinum: Cardiomegaly. Pulmonary vessels: There is pulmonary vascular congestion. Lung chapman: No suspicious airspace opacity. Pleura: No effusion. No pneumothorax. Bones and soft tissues: No acute osseous or soft tissue abnormality. IMPRESSION: 1. Findings suggest heart failure THIS IS AN ELECTRONICALLY VERIFIED FINAL REPORT 12/04/2023 12:59 PM - Electronically signed by Enrrique Montgomery MD
[2023-12-04] MEDS: SEROquel TAB 25 mg PO PRN (20:15)
[2023-12-05 05:04] LABS: BILIRUBIN,URINE NEGATIVE (NEGATIVE); BLOOD/HEMOGLOBIN,URINE 2+ (NEGATIVE); GLUCOSE, URINE NEGATIVE (NEGATIVE); KETONES,URINE NEGATIVE (NEGATIVE); LEUKOCYTE ESTERASE ,URINE NEGATIVE (NEGATIVE); NITRITES,URINE NEGATIVE (NEGATIVE); PROTEIN,URINE NEGATIVE (NEGATIVE); UROBILINOGEN,URINE NORMAL (NORMAL)
[2023-12-05 05:07] LABS: APPEARANCE,URINE CLEAR (CLEAR); COLOR,URINE PALE YELLOW (YELLOW)
[2023-12-05 05:12] LABS: BACTERIA,URINE TRACE /HPF (NEGATIVE); SQUAMOUS EPITHELIAL CELL,UR FEW /HPF (NEGATIVE)
[2023-12-05 06:13] LABS: BASOPHILS % (AUTO) 0 % (0.2-1.0); HEMATOCRIT 35.9 % (36.0-47.0); HEMOGLOBIN 12.2 g/dL (12.0-16.0); LYMPHOCYTES % (AUTO) 9.9 % (21.0-51.0); MEAN CORPUSCULAR HEMOGLOBIN 30.6 pg (27.0-34.0); MEAN PLATELET VOLUME 8.3 fL (7.4-11.0); MONOCYTES # (AUTO) 0.6 x10^3/uL (0.3-0.8); MONOCYTES % (AUTO) 5.6 % (0.0-13.0); NEUTROPHILS # (AUTO) 8.8 x10^3/uL (2.2-4.8); NEUTROPHILS % (AUTO) 84.5 % (42.0-75.0); PLATELET COUNT 178 X10^3/uL (150.0-450.0); RED BLOOD COUNT 3.99 X10^6/uL (3.5-5.4); RED CELL DISTRIBUTION WIDTH 12.9 % (11.6-16.5); WHITE BLOOD COUNT 10.5 X10^3/uL (3.6-10.0)
[2023-12-05 06:27] LABS: ALANINE AMINOTRANSFERASE 24 Units/L (12-78); ALBUMIN 2.1 g/dL (3.4-5.0); ALKALINE PHOSPHATASE 62 Units/L (46-116); ASPARTATE AMINO TRANSFERASE 14 Units/L (15-37); BLOOD UREA NITROGEN 24 mg/dL (7-18); CALCIUM 8.1 mg/dL (8.5-10.1); CARBON DIOXIDE 23.9 mmol/L (21-32); CHLORIDE 112 mmol/L (98-107); COR CA(FOR HYPOALB) 9.6 mg/dL (8.5-10.1); COR NA(FOR HYPERGLY) 145 mmol/L (136-145); GLUCOSE 137 mg/dL (65-99); POTASSIUM 4.1 mmol/L (3.5-5.1); SODIUM 144 mmol/L (136-145); TOTAL PROTEIN 5.5 g/dL (6.4-8.2); eGFR NON BLACK RACES > 60 (>60)
--- NOTE | 2023-12-05 07:56 | RAD ---
EXAM:Portable AP chestHISTORY:Hypoxia bronchitisCOMPARISON:12/04/2023FINDINGS: Stable heart size. Re-demonstration of pulmonary venous congestion with diffuse interstitial prominence bilaterally. No developing consolidation or large pleural effusion.IMPRESSION:No change. Stable cardiac prominence with probable CHF/edema.THIS IS AN ELECTRONICALLY VERIFIED FINAL REPORT12/05/2023 7:52 AM - Electronically signed by Bert Elizabeth MD
[2023-12-05] MEDS: LASIX IVP SCH (09:25)
[2023-12-05 11:07] LABS: ABG ALLEN TEST POS; ABG BASE EXCESS 2.5 mmol/L (-2.0-2.0); ABG HCO3 26.3 mmol/L (22-26)
[2023-12-05] MEDS: VALIUM PO PRN (17:58)
[2023-12-06 05:56] LABS: BASOPHILS % (AUTO) 0.1 % (0.2-1.0); LYMPHOCYTES # (AUTO) 0.5 X10^3/uL (1.3-2.9); LYMPHOCYTES % (AUTO) 4.8 % (21.0-51.0); MEAN CORPUSCULAR HEMOGLOBIN 30.1 pg (27.0-34.0); MEAN CORPUSCULAR HGB CONC 33.3 g/dL (33.0-35.0); MEAN CORPUSCULAR VOLUME 90.3 fL (80.0-100.0); MEAN PLATELET VOLUME 8.7 fL (7.4-11.0); MONOCYTES # (AUTO) 0.6 x10^3/uL (0.3-0.8); MONOCYTES % (AUTO) 5.8 % (0.0-13.0); NEUTROPHILS # (AUTO) 9.1 x10^3/uL (2.2-4.8); NEUTROPHILS % (AUTO) 89.3 % (42.0-75.0); PLATELET COUNT 184 X10^3/uL (150.0-450.0); RED BLOOD COUNT 3.98 X10^6/uL (3.5-5.4); RED CELL DISTRIBUTION WIDTH 12.8 % (11.6-16.5); WHITE BLOOD COUNT 10.2 X10^3/uL (3.6-10.0)
[2023-12-06 06:02] LABS: ALANINE AMINOTRANSFERASE 31 Units/L (12-78); ALBUMIN 2.1 g/dL (3.4-5.0); ALKALINE PHOSPHATASE 59 Units/L (46-116); ASPARTATE AMINO TRANSFERASE 14 Units/L (15-37); BLOOD UREA NITROGEN 27 mg/dL (7-18); CALCIUM 8.1 mg/dL (8.5-10.1); CARBON DIOXIDE 26.2 mmol/L (21-32); CHLORIDE 110 mmol/L (98-107); COR CA(FOR HYPOALB) 9.6 mg/dL (8.5-10.1); COR NA(FOR HYPERGLY) 143 mmol/L (136-145); CREATININE 0.81 mg/dL (0.55-1.02); GLUCOSE 142 mg/dL (65-99); POTASSIUM 4.1 mmol/L (3.5-5.1); SODIUM 142 mmol/L (136-145); TOTAL PROTEIN 5.5 g/dL (6.4-8.2); eGFR NON BLACK RACES > 60 (>60)
[2023-12-06 08:17] VITALS: BP 165/70; PULSE 69; RESP 18; TEMP 97.2; O2SAT 96
== END 2023-12-06 13:20 | disposition home health service (06) | DRG 202 ==
LOC: ER 10:44 → MED/SURG 10:44 → OBSVTOIN 14:49 → MED/SURG 15:25
PROVIDERS: ADMIT Internal Medicine; ATTEND Internal Medicine
DX: G30.8 Other Alzheimer's disease; R26.89 Other abnormalities of gait and mobility; R29.6 Repeated falls; F02.818 Dementia in other diseases classified elsewhere, unspecified severity, with other behavioral disturbance; B96.1 Klebsiella pneumoniae [K. pneumoniae] as the cause of diseases classified elsewhere; R09.02 Hypoxemia; B97.4 Respiratory syncytial virus as the cause of diseases classified elsewhere; R53.1 Weakness; R01.1 Cardiac murmur, unspecified; R06.02 Shortness of breath; J20.8 Acute bronchitis due to other specified organisms; Z20.822 Contact with and (suspected) exposure to COVID-19; I50.9 Heart failure, unspecified